=== PATIENT | female | born 1980 | race Caucasian/White ===

== ENCOUNTER → 2018-08-06 12:08 | Outpatient (CLI) | payer OTHER, SELFPAY ==
[2018-08-06 15:29] LABS: TSH w/ Reflex to FT4 2.83 uIU/mL (0.47-4.68)
== END ==
PROVIDERS: PCP Family Medicine; Visit Provider Family Medicine
DX: Z83.49 Family history of other endocrine, nutritional and metabolic diseases (principal)
CPT/HCPCS: 36415; 84443

== ENCOUNTER → 2020-04-12 14:28 | Outpatient (CLI) | payer OTHER, SELFPAY ==
[2020-04-12 18:12] LABS: Vitamin B12 326 pg/mL (239-931)
== END ==
PROVIDERS: PCP Family Medicine; Referring Provider Family Medicine; Visit Provider Family Medicine
DX: G62.9 Polyneuropathy, unspecified (principal)
CPT/HCPCS: 36415; 82607; 83036

== ENCOUNTER → 2020-09-17 13:15 | Outpatient (CLI) | payer OTHER, SELFPAY ==
[2020-09-17] MEDS: COVID-19 VACC, Ad26(JANSSEN)/PF 0.5 ML IM (13:21)
== END ==
PROVIDERS: PCP Family Medicine; Visit Provider Internal Medicine
DX: Z23 Encounter for immunization (principal)
CPT/HCPCS: 0031A; 91303

== ENCOUNTER → 2021-11-18 10:08 | Outpatient (CLI) | payer OTHER, SELFPAY ==
[2021-11-18 11:24] LABS: Hemoglobin A1C% w Est Avg Glu 6.1 % (4.0-6.0)
== END ==
PROVIDERS: PCP Family Medicine; Referring Provider Family Medicine; Visit Provider Family Medicine
DX: R73.03 Prediabetes (principal)
CPT/HCPCS: 36415; 83036

== ENCOUNTER → 2022-11-09 10:17 | Outpatient (CLI) | payer OTHER, SELFPAY ==
[2022-11-10 04:30] LABS: x Labcorp Estim. Avg Glu (eAG) 126 mg/dL (.)
== END ==
PROVIDERS: PCP Family Medicine; Referring Provider Family Medicine; Visit Provider Family Medicine
DX: R73.03 Prediabetes (principal)
CPT/HCPCS: 36415; 83036

== ENCOUNTER → 2023-03-05 09:49 | Outpatient (CLI) | payer OTHER, SELFPAY ==
--- NOTE | 2023-03-05 09:53 | DI.RAD.S_ITS ---
PROCEDURE: XR FOOT LT MIN 3V INDICATIONS: Left foot injury between 3rd and 4th toe TECHNIQUE: 3 views of the foot were acquired. COMPARISON: [facility], , FOOT 3V LEFT, 04/24/2017, 11:48. FINDINGS: Bones: Mild degenerative changes at the 1st MTP. No displaced fracture or dislocations is seen. Plantar calcaneal enthesopathy. Soft tissues: No suspicious calcifications. IMPRESSION: No acute radiographic abnormality. If there is high concern for occult injury, consider repeat radiography or cross-sectional imaging. Dictated by: Brando Nice M.D. on 03/05/2023 at 14:42 Approved by: Brando Nice M.D. on 03/05/2023 at 14:43
== END ==
PROVIDERS: PCP Family Medicine; Referring Provider Nurse Practitioner Family; Visit Provider Nurse Practitioner Family
DX: S99.922A Unspecified injury of left foot, initial encounter (principal); X58.XXXA Exposure to other specified factors, initial encounter
CPT/HCPCS: 73630

== ENCOUNTER → 2023-11-19 14:21 | Outpatient (CLI) | payer OTHER, SELFPAY ==
--- NOTE | 2023-11-19 14:22 | DI.MG.S_ITS ---
BILATERAL DIGITAL SCREENING MAMMOGRAM 3D/2D WITH CAD: 11/19/2023 CLINICAL: Baseline exam. Routine screening. Family history of breast Cancer. No prior exams were available for comparison. Both breasts are heterogeneously dense, which may obscure small masses (category c / 51-75% glandular tissue). Current study was also evaluated with a Computer Aided Detection (CAD) system. There is a focal asymmetry in the left breast at 2 o'clock middle depth. No other significant masses, calcifications, or other findings are seen in either breast. IMPRESSION: INCOMPLETE: NEEDS ADDITIONAL IMAGING EVALUATION The focal asymmetry in the left breast is indeterminate. A diagnostic mammogram and ultrasound is recommended. Based on the Tyrer Cuzick model (a risk assessment model) the patient's lifetime risk is 16.6% and her 10 year risk is 2.9%. According to the ACR, ACS, and NCCN guidelines, an annual breast MRI exam along with mammogram is recommended if the patient's lifetime risk is 20% or greater. This exam was interpreted at Station ID: [id number]. NOTE: For mammograms, a report in lay terms will be sent to the patient. Approximately 15% of breast malignancies will not be visualized mammographically. In the management of a palpable breast mass, a negative mammogram must not discourage biopsy of a clinically suspicious lesion. Electronically Signed By: Rosey Jarvis M.D., Ph.D. eb/:11/19/2023 16:24:56 letter sent: Additional Imaging Needed ACR BI-RADS Category 0: Incomplete 3340F
== END ==
PROVIDERS: Family Provider Family Medicine; PCP Family Medicine; Referring Provider Family Medicine; Visit Provider Family Medicine
DX: Z12.31 Encounter for screening mammogram for malignant neoplasm of breast (principal); Z80.3 Family history of malignant neoplasm of breast; R92.333 Mammographic heterogeneous density, bilateral breasts
CPT/HCPCS: 77063; 77067

== ENCOUNTER → 2023-12-11 08:52 | Outpatient (CLI) | payer OTHER, SELFPAY ==
--- NOTE | 2023-12-11 08:53 | DI.MG.S_ITS ---
UNILATERAL LEFT DIGITAL DIAGNOSTIC MAMMOGRAM 3D/2D WITH ADDITIONAL VIEWS: 12/11/2023 CLINICAL: Additional evaluation requested from prior study. Comparison is made to exam dated: 11/19/2023 mammogram - [facility]. The left breast is heterogeneously dense, which may obscure small masses (category c / 51-75% glandular tissue). There is a 0.9 cm oval mass with a circumscribed margin and associated dystrophic calcifications in the left breast at 2 o'clock posterior depth. This corresponds to finding seen on recent baseline screening mammogram. No other significant masses or calcifications are seen in the breast. IMPRESSION: INCOMPLETE: NEEDS ADDITIONAL IMAGING EVALUATION Left breast 0.9 cm oval mass with associated dystrophic calcifications at 2 o'clock, posterior depth, initially seen on baseline screening mammogram. An ultrasound is recommended for further evaluation and is scheduled to immediately follow this examination. Based on the Tyrer Cuzick model (a risk assessment model) the patient's lifetime risk is 17.5% and her 10 year risk is 3.1%. According to the ACR, ACS, and NCCN guidelines, an annual breast MRI exam along with mammogram is recommended if the patient's lifetime risk is 20% or greater. This exam was interpreted at Station ID: [id number]. NOTE: For mammograms, a report in lay terms will be sent to the patient. Approximately 15% of breast malignancies will not be visualized mammographically. In the management of a palpable breast mass, a negative mammogram must not discourage biopsy of a clinically suspicious lesion. Electronically Signed By: Rosey Jarvis M.D., Ph.D. eb/:12/11/2023 13:04:31 ACR BI-RADS Category 0: Incomplete 3340F
--- NOTE | 2023-12-11 08:53 | DI.US.S_ITS ---
LIMITED ULTRASOUND OF LEFT BREAST: 12/11/2023 CLINICAL: Patient returns today to evaluate a focal asymmetry in the left breast. Comparison is made to exams dated: 12/11/2023 mammogram and 11/19/2023 mammogram - [facility]. Real-time ultrasound of the left breast 2 o'clock region was performed. Sorensen scale images of the real-time examination were reviewed. There is a 0.9 cm x 0.5 cm x 0.7 cm oval mass with a circumscribed margin in the left breast at 2 o'clock, 8 cm from the nipple. This oval mass is hypoechoic. This correlates with mammography findings. Color flow imaging demonstrates that there is no vascularity present. IMPRESSION: PROBABLY BENIGN Left breast 0.9 cm oval mass at 2 o'clock. 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 Recommend follow-up mammogram and an ultrasound in 6 months to demonstrate stability. Findings and recommendations were conveyed to the patient during today's evaluation. This exam was interpreted at Station ID: [id number]. Electronically Signed By: Rosey Jarvis M.D., Ph.D. eb/:12/11/2023 13:07:02 letter sent: Followup Recommended Ultrasound BI-RADS: 3 Probably benign
== END ==
PROVIDERS: Family Provider Family Medicine; PCP Family Medicine; Referring Provider Family Medicine; Visit Provider Family Medicine
DX: R92.8 Other abnormal and inconclusive findings on diagnostic imaging of breast (principal); R92.1 Mammographic calcification found on diagnostic imaging of breast; N63.21 Unspecified lump in the left breast, upper outer quadrant; R92.332 Mammographic heterogeneous density, left breast
CPT/HCPCS: 76642; 77065; G0279

== ENCOUNTER → 2024-01-10 11:16 | Outpatient (CLI) | payer BC, OTHER, SELFPAY ==
--- NOTE | 2024-01-10 11:17 | DI.RAD.S_ITS ---
PROCEDURE: XR FINGER RT 3V INDICATIONS: Right middle finger injury TECHNIQUE: AP hand, 3 views of the finger(s) acquired. COMPARISON: None. FINDINGS: Bones: No fracture or dislocation. No suspicious bony lesions. Soft tissues: No soft tissue calcifications. IMPRESSION: No radiographic evidence of acute bony abnormality. If symptoms persist or worsen, MRI could be performed Dictated by: Barrie Casarez M.D. on 01/10/2024 at 14:14 Approved by: Barrie Casarez M.D. on 01/10/2024 at 14:41
== END ==
PROVIDERS: Family Provider Family Medicine; PCP Family Medicine; Referring Provider Nurse Practitioner Family; Visit Provider Nurse Practitioner Family
DX: S69.90XA Unspecified injury of unspecified wrist, hand and finger(s), initial encounter (principal); S69.91XA Unspecified injury of right wrist, hand and finger(s), initial encounter; X58.XXXA Exposure to other specified factors, initial encounter
CPT/HCPCS: 73140

== ENCOUNTER 2024-03-04 10:45 | Outpatient (RCR) | payer BC, OTHER, SELFPAY ==
--- NOTE | 2023-12-13 15:58 | PT.OIE ---
Current Diagnoses Pain in left elbow (12/13/23) Pain in right ankle and joints of right foot (12/13/23) Stiffness of left elbow, not elsewhere classified (12/13/23) Stiffness of right ankle, not elsewhere classified (12/13/23) Other lack of coordination (12/13/23) Weakness (12/13/23) Past Medical History (Last Updated 04/13/20 @ 13:39 by Eileen Mcmahan MD) Hx gestational diabetes Prediabetes Past Surgical History Status post arthroscopy Status post delivery Status post delivery Status post delivery Status post colposcopy Visit Care Team Role Provider Type Eileen Mcmahan MD Attending Provider Physician Family Provider Primary Care Provider Referring Provider Specialty: [facility] Address: [address] [place] [address], [facility] Email: [email or web address] Physical Therapy Initial Evaluation PT-OP-A Visit Information Start: 12/13/23 09:03 Freq: Status: Active Protocol: Document 12/13/23 09:03 NM (Rec: 12/13/23 09:47 NM [id number]) Out-Patient Physical Therapy Visit Information Visit Information Visit Type Initial Evaluation Visit Note Fin Visit Start Time 09:04 Visit Stop Time 09:45 Visit Number 05/24 Evaluation Information Evaluation Date 12/13/23 PT-OP-B Current Condition Start: 12/13/23 09:03 Freq: Status: Active Protocol: Document 12/13/23 09:03 NM (Rec: 12/13/23 09:47 NM [id number]) Current Condition History of Current Condition Current Complaints pain, decreased mobility and stability History of Current Condition Pt presents with R ankle pain. It is chronic condition, 10 years ago from injury. Pt was chasing after her son in a jump house, jumping over the wedge, hit the outside of her ankle and landed. She was assessed for a sprain and fracture, was casted and booted; she had 2 cycles of PRP and an arthroscopy to remove scar tissue. She reports that is was manageable ; however, now she feels like a tendon is catching in the ankle when she moves. She occasionally gets a sharp pain that makes her leg give out. She has been wearing supportive hiking boots; worse with: driving (pressing pedal ), taekwondo w/ twisting or lateral movements, uneven ground ambulation, unable to run, car transfer. No recent imaging. Ok to stand or walk unless prolonged due to repetitive movement; no limitation due to distance/ time. She has been doing taekwondo for a year (dec 2022), states that catching started in the spring 2022. Has tried ankle compression sleeve which helps but does not stop the problem. Pt also presents with L elbow pain for 8 months. She reports that she though it was achy. She states was progressively getting worse. About 1 month ago, she states that it was the worse that it ever was. 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 She also has occasional shoulder pain. States no known JOSE ALFREDO. She states that on an evening, she has rest it on a pillow. 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 ; on computer a lot, prn travel (standing) PT-OP-C Subjective Start: 12/13/23 09:03 Freq: Status: Active Protocol: Document 12/13/23 09:03 NM (Rec: 12/13/23 09:47 NM [id number]) OP-PT Subjective Patient Comments Patient Comments pt consents to participate in PT evaluation Patient Questionnaires Foot & Ankle Ability Measure- ADL and Sports FAAM-ADL Score 57/84 FAAM-Sport Score 13/32 Lower Extremity Functional Scale LEFS Score 50/80 Quick Dash- Upper Extremity Quick Dash UE Score 31.8% OP-PT Pain Assessment Location L elbow Pain Location Details lateral elbow Intensity 3 Scale Used Numeric (0 - 10) Description Aching,Burning,Dull Description- Other burn to lateral elbow, sharp pain to lateral elbow; worst 8 /10 Radiating Location prn tingling to pinky and shoulder at worst (not present right now) Pain Aggravating Factors Lifting Other Pain Aggravating Factors gripping, twisting, driving Other Pain Alleviating Factors compression sleeve (elbow) R ankle Pain Location Details anterolateral joint Intensity 3 Scale Used Numeric (0 - 10) Description Aching,Dull,Sharp Description- Other w/ aggravation -12/07 Pain Duration a few minutes to hours ( driving) Radiating Location w/ aggravation: to toes and hip Pain Aggravating Factors ADL's,Activity,Exercise, Standing,Walking Pain Alleviating Factors Cold,Elevation,Rest PT-OP-D Balance Start: 12/13/23 09:03 Freq: Status: Active Protocol: Document 12/13/23 09:03 NM (Rec: 12/13/23 09:47 NM [id number]) Balance Tests Single Limb Standing Single Limb- Right 10 seconds, painful Single Limb- Left 30 seconds PT-OP-E Functional Tests Start: 12/13/23 09:03 Freq: Status: Active Protocol: Document 12/13/23 09:03 NM (Rec: 12/13/23 09:47 NM [id number]) Functional Tests Other DF test Name of Test measured from 4 finger position (toe) to wall, heel down on ground Score R 3.5 cm, L 0 cm PT-OP-F Manual Assessment Start: 12/13/23 09:03 Freq: Status: Active Protocol: Document 12/13/23 09:03 NM (Rec: 12/13/23 09:47 NM [id number]) Manual Assessments Soft Tissue Assessment Soft Tissue Mobility Assessment elbow- decreased length of biceps muscle, increased tone in extensor wad ankle- increased swelling at R ankle along lateral side, decreased length of achilles Joint Mobility Assessment Joint Mobility Assessment elbow- increased muscle guarding, no increased instability compared to R elbow, unable to fully extend elbow ankle- increased movement in sagittal plane with anterior drawer along with increased pain, no increased pain with other medial or lateral ligamentous testing or forceful ankle dorsiflexion PT-OP-G Mobility & Gait Start: 12/13/23 09:03 Freq: Status: Active Protocol: Document 12/13/23 09:03 NM (Rec: 12/13/23 10:04 NM [id number]) OP Gait Assessment Gait Distance (Feet) 150 Comments Gait Comments Antalgic gait with R stance, demos decreased stance time and dorsiflexion on RLE. Less propulsion on RLE and slight ER PT-OP-J Posture/Palpation/Skin Start: 12/13/23 09:03 Freq: Status: Active Protocol: Document 12/13/23 09:03 NM (Rec: 12/13/23 10:04 NM [id number]) Posture Evaluation Position Standing Head/C-Spine Posture Forward Head Arm Posture (L) Neutral,(R) Neutral Pelvis Posture Anteriorly Tilted Weight Distribution Weight Shifted Left Hip Posture (L) Externally Rotated,(R) Externally Rotated Knee Posture (L) Genu Valgus,(R) Genu Valgus Ankle/Foot Posture (L) Supinated,(R) Supinated Foot Arch (L) Medium Arch,(R) Medium Arch Comments Posture Comments Increased carrying elbow angle bilaterally, hyperextension of R knee in stance Palpation Assessment Location L elbow Palpation Details Tenderness along B joint line lateral > medial, lateral extenor wad and lateral epidcondyle no tenderness along olecranon or biceps/triceps near insertion R ankle Palpation Details Tenderness along anterior ankle near sinus tarsi, ankle mortise, and lateral malleolus Increased swelling along ankle across B malleoli No tenderness along rays or tarsals, calcaneus, malleoli PT-OP-K Range of Motion Start: 12/13/23 09:03 Freq: Status: Active Protocol: Document 12/13/23 09:03 NM (Rec: 12/13/23 09:47 NM [id number]) Cervical Spine Range of Motion Cervical Spine Active Degrees Rotation Left 70 Rotation Right 80 Comments full flex/ext, LF; no pain Shoulder Goniometric Range of Motion Shoulder Right Flexion 170 Abduction 140 External Rotation at 90 degrees 80 Abduction Internal Rotation Behind Back (text) T7 Left Flexion 166 Abduction 165 External Rotation at 90 degrees 80 Abduction Internal Rotation Behind Back (text) T9 Elbow/Forearm Range of Motion Elbow/Forearm Right Elbow Flexion (degrees) 144 Elbow Extension (degrees) 0 Pronation (degrees) 90 Supination (degrees) 80 Left Elbow Flexion (degrees) 140 Elbow Extension (degrees) 10 Pronation (degrees) 90 Supination (degrees) 90 Comments pain with pronation, sup w/ flex Ankle and Foot Goniometric Range of Motion Ankle and Foot Right Plantarflexion 45 Inversion 10 Eversion 10 Comments minimal ROM into inversion, eversion but denies pain; lacking 10 deg DF from neutral Left Dorsiflexion with Knee Flexed 6 Plantarflexion 50 Inversion 30 Eversion 20 PT-OP-L Special Tests Start: 12/13/23 09:03 Freq: Status: Active Protocol: Document 12/13/23 09:03 NM (Rec: 12/13/23 10:04 NM [id number]) Special Tests Cervical Spine Special Tests Traction Comments assess next session Spurling's Test Test Results - Elbow Special Tests Lateral epicondylitis tests Comments + palpation + 3rd finger ext + lateral epicondylitis test flex > ext Hook test Test Results able to palpate and hook distal biceps tendon Yergason's Biceps Test Results - Varus Test Results - Comments increased guarding Valgus Test Results - Comments increased guarding Foot/Ankle Special Tests Peroneal Subluxation Test Results - Srinivasan Test Results - Talar tilt Test Results - Anterior drawer Test Results + Neural Special Tests- Upper Body Elbow Flexion Test Test Results - Tinel Sign Test Results - Comments ulnar n PT-OP-M Strength Start: 12/13/23 09:03 Freq: Status: Active Protocol: Document 12/13/23 09:03 NM (Rec: 12/13/23 09:47 NM [id number]) Shoulder Strength Shoulder Manual Muscle Testing Right Flexion 4+ Good+ Abduction (C5) 4+ Good+ External Rotation 4+ Good+ Internal Rotation 4+ Good+ Left Flexion 4+ Good+ Abduction (C5) 4+ Good+ External Rotation 4+ Good+ Internal Rotation 4+ Good+ Elbow/Forearm Strength Elbow and Forearm Manual Muscle Testing Right Flexion (C6) 4+ Good+ Extension (C7) 4+ Good+ Pronation 4+ Good+ Supination 4+ Good+ Left Flexion (C6) 4 Good Extension (C7) 4 Good Pronation 4- Good- Supination 4- Good- Comments no pain with resisted motion Hip Strength Hip Manual Muscle Testing Right Flexion (L2) 4 Good Extension (S1) 4 Good Abduction 4- Good- Adduction 4 Good Left Flexion (L2) 4 Good Extension (S1) 4 Good Abduction 4 Good Adduction 4 Good Knee Strength Knee Manual Muscle Testing Right Flexion (S2) 4 Good Extension (L3) 4- Good- Left Flexion (S2) 4+ Good+ Extension (L3) 4+ Good+ Ankle/Foot Strength Ankle and Foot Manual Muscle Testing Right Dorsiflexion (L4) 4- Good- Plantarflexion (S1) 3 Fair Inversion 4- Good- Eversion (S1) 4- Good- Comments 2 single leg heel raise Left Dorsiflexion (L4) 4+ Good+ Plantarflexion (S1) 4 Good Inversion 4+ Good+ Eversion (S1) 4+ Good+ Comments 18 single leg heel raise PT-OP-Q Treatments Start: 12/13/23 09:03 Freq: Status: Active Protocol: Document 12/13/23 09:03 NM (Rec: 12/13/23 10:04 NM [id number]) Self-Care/Home Management Treatment Education Patient Education Joint Protection,Pain Management Other Education Education on potential use of lateral epicondylitis strap brace at elbow during driving Education on trialing ankle brace during tae tuan do to promote stability PT-OP-T Assessment and Plan Start: 12/13/23 09:03 Freq: Status: Active Protocol: Document 12/13/23 09:03 NM (Rec: 12/13/23 09:47 NM [id number]) Physical Therapy Assessment Rehab Potential Rehabilitation Potential Good Evaluation Complexity Clinical Presentation at Evaluation Stable Impairments Impairments Activity Tolerance,Balance, Edema,Functional Activities, Functional Mobility,Gait, Integument,Pain,Posture,ROM, Sensation,Soft Tissue Mobility ,Strength,Transfers Other Concerns Barriers to Rehabilitation Pt has limited number of insurance visits and has multiple joints affected with chronic conditions. 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 for driving and ability to lift STG Duration 10 weeks Chief Medical Technologist Goal (LTG) Pt will report no increase in baseline pain in L elbow or limitations during driving in order to demonstrate improved symptom management and QOL LTG Duration 12 weeks Four Impairment L elbow extension limited by 10 deg Short Term Goal (STG) If appropriate, Pt will improve L elbow extension by at least 5 deg in order to be able to extend arm fully for gripping, lifting, and driving STG Duration 8 weeks Chief Medical Technologist Goal (LTG) If appropriate, Pt will improve L elbow extension to at least 2 deg in order to be able to extend arm fully for gripping, lifting, and driving LTG Duration 12 weeks Three Impairment strength Short Term Goal (STG) Pt will increase R global ankle strength to at least 4/5 MMT in order to demonstrate improved strength for gait, tae tuan do, and endurance while driving STG Duration 6 weeks Chief Medical Technologist Goal (LTG) Pt will improve R ankle single leg heel raises to within 3 of LLE, in addition to 4+/5 R ankle strength globally in order to demonstrate improved strength for gait, tae tuan do and endurance while driving LTG Duration 8 weeks Two Impairment ankle AROM limitations in eversion and inversion 10 deg ea Short Term Goal (STG) Pt will increase R ankle inversion AROM to at least 20 deg and R ankle eversion ROM to at least 12 deg in order to demonstrate improved mobility for stability during stance and gait STG Duration 8 weeks Chief Medical Technologist Goal (LTG) Pt will increase R ankle inversion AROM to at least 30 deg and R ankle eversion ROM to at least 15 deg in order to demonstrate improved mobility for stability during stance and gait LTG Duration 12 weeks One Impairment ankle ROM DF limitations lacking 10 deg from neutral Short Term Goal (STG) Pt will improve R ankle dorsiflexion AROM to at least neutral in order to improve gait mechanics and mobility for driving STG Duration 8 weeks Custodial Goal (LTG) Pt will improve R ankle dorsiflexion AROM to at least 5 deg above neutral in order to improve gait mechanics and mobility for driving LTG Duration 12 weeks Assessment Summary Assessment Pt isia 43 y.o. female presenting with chronic R ankle pain and chronic L elbow pain. She has impairments in elbow and ankle ROM, strength, pain management, gait, driving, ADLs, lifting, ambulation, gripping, and activity tolerance. Pt's R ankle dorsiflexion AROM is most limited but she does have restrictions globally; she also has increased mobility with ligament testing of ATFL. Her symptoms are reproduced with stabilization testing, single leg stance, gait, AROM, and strength testing. Pt's L elbow symptoms are consistent with lateral epicondylitis, reproduced with gripping, repetitive movements. She has limitations in L elbow extension AROM, in addition to mild limitations in strength. Pt has increased restrictions of her biceps muscle length. She also has pain with varus/ valgus testing but no increased mobility. PT educated pt on exam findings and plan of care. Pt is requesting to focus on her R ankle due to recent improvement in L elbow. Pt also has limited number of insurance visits. She would benefit from skilled PT for flexibility, stabilization, strength training, in addition to activity modification and proprioceptive training in order to improve symptom management and QOL. Physical Therapy Plan Frequency and Duration Frequency of Treatment 1x/Week Duration of treatment (weeks) 12 Plan of Care Start Date 12/13/23 Plan of Care End Date 03/07/24 Therapeutic Interventions Therapeutic Interventions Balance Training,Gait Training ,Home Exercise Program,Joint Mobilizations,Manual Therapy, Neuromuscular Re-education, Orthotic/Prosthetic Management ,Patient/Caregiver Education, Self-Care/Home Management, Sensory Integration,Soft Tissue Mobilization,Taping, Therapeutic Activities, Therapeutic Exercises Modalities Cold Pack/Ice Massage,Electric Stimulation,Hot Packs, Ultrasound Next Visit Focus/Plan Next Note Type Treatment Note Next Visit Plan Ankle mobilizations, calf stretch, ankle circles/abc, ankle banded 4 way, DF mobilization
--- NOTE | 2023-12-25 12:11 | PT.OTN ---
Current Diagnoses Pain in left elbow (12/25/23) Pain in right ankle and joints of right foot (12/25/23) Stiffness of left elbow, not elsewhere classified (12/25/23) Stiffness of right ankle, not elsewhere classified (12/25/23) Other lack of coordination (12/25/23) Weakness (12/25/23) Physical Therapy Treatment Note PT-OP-A Visit Information Start: 12/13/23 09:03 Freq: Status: Active Protocol: Document 12/25/23 11:17 NM (Rec: 12/25/23 12:11 NM [id number]) Out-Patient Physical Therapy Visit Information Visit Information Visit Type Treatment Note Visit Note Fin Visit Start Time 11:18 Visit Stop Time 12:58 Visit Number 06/24 Evaluation Information Evaluation Date 12/13/23 PT-OP-B Current Condition Start: 12/13/23 09:03 Freq: Status: Active Protocol: Document 12/13/23 09:03 NM (Rec: 12/13/23 09:47 NM [id number]) Current Condition History of Current Condition Current Complaints pain, decreased mobility and stability History of Current Condition Pt presents with R ankle pain. It is chronic condition, 10 years ago from injury. Pt was chasing after her son in a jump house, jumping over the wedge, hit the outside of her ankle and landed. She was assessed for a sprain and fracture, was casted and booted; she had 2 cycles of PRP and an arthroscopy to remove scar tissue. She reports that is was manageable ; however, now she feels like a tendon is catching in the ankle when she moves. She occasionally gets a sharp pain that makes her leg give out. She has been wearing supportive hiking boots; worse with: driving (pressing pedal ), taekwondo w/ twisting or lateral movements, uneven ground ambulation, unable to run, car transfer. No recent imaging. Ok to stand or walk unless prolonged due to repetitive movement; no limitation due to distance/ time. She has been doing taekwondo for a year (dec 2022), states that catching started in the spring 2022. Has tried ankle compression sleeve which helps but does not stop the problem. Pt also presents with L elbow pain for 8 months. She reports that she though it was achy. She states was progressively getting worse. About 1 month ago, she states that it was the worse that it ever was. 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 She also has occasional shoulder pain. States no known JOSE ALFREDO. She states that on an evening, she has rest it on a pillow. 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 States that she went hiking after evaluation and has had achilles soreness bilaterally for 2 weeks. States that when touching near anterior ankle has increased tingling at dorsal foot (not present otherwise) PT-OP-D Balance Start: 12/13/23 09:03 Freq: Status: Active Protocol: Document 12/13/23 09:03 NM (Rec: 12/13/23 09:47 NM [id number]) Balance Tests Single Limb Standing Single Limb- Right 10 seconds, painful Single Limb- Left 30 seconds PT-OP-E Functional Tests Start: 12/13/23 09:03 Freq: Status: Active Protocol: Document 12/13/23 09:03 NM (Rec: 12/13/23 09:47 NM [id number]) Functional Tests Other DF test Name of Test measured from 4 finger position (toe) to wall, heel down on ground Score R 3.5 cm, L 0 cm PT-OP-F Manual Assessment Start: 12/13/23 09:03 Freq: Status: Active Protocol: Document 12/13/23 09:03 NM (Rec: 12/13/23 09:47 NM [id number]) Manual Assessments Soft Tissue Assessment Soft Tissue Mobility Assessment elbow- decreased length of biceps muscle, increased tone in extensor wad ankle- increased swelling at R ankle along lateral side, decreased length of achilles Joint Mobility Assessment Joint Mobility Assessment elbow- increased muscle guarding, no increased instability compared to R elbow, unable to fully extend elbow ankle- increased movement in sagittal plane with anterior drawer along with increased pain, no increased pain with other medial or lateral ligamentous testing or forceful ankle dorsiflexion PT-OP-G Mobility & Gait Start: 12/13/23 09:03 Freq: Status: Active Protocol: Document 12/13/23 09:03 NM (Rec: 12/13/23 10:04 NM [id number]) OP Gait Assessment Gait Distance (Feet) 150 Comments Gait Comments Antalgic gait with R stance, demos decreased stance time and dorsiflexion on RLE. Less propulsion on RLE and slight ER PT-OP-J Posture/Palpation/Skin Start: 12/13/23 09:03 Freq: Status: Active Protocol: Document 12/13/23 09:03 NM (Rec: 12/13/23 10:04 NM [id number]) Posture Evaluation Position Standing Head/C-Spine Posture Forward Head Arm Posture (L) Neutral,(R) Neutral Pelvis Posture Anteriorly Tilted Weight Distribution Weight Shifted Left Hip Posture (L) Externally Rotated,(R) Externally Rotated Knee Posture (L) Genu Valgus,(R) Genu Valgus Ankle/Foot Posture (L) Supinated,(R) Supinated Foot Arch (L) Medium Arch,(R) Medium Arch Comments Posture Comments Increased carrying elbow angle bilaterally, hyperextension of R knee in stance Palpation Assessment Location L elbow Palpation Details Tenderness along B joint line lateral > medial, lateral extenor wad and lateral epidcondyle no tenderness along olecranon or biceps/triceps near insertion R ankle Palpation Details Tenderness along anterior ankle near sinus tarsi, ankle mortise, and lateral malleolus Increased swelling along ankle across B malleoli No tenderness along rays or tarsals, calcaneus, malleoli PT-OP-K Range of Motion Start: 12/13/23 09:03 Freq: Status: Active Protocol: Document 12/13/23 09:03 NM (Rec: 12/13/23 09:47 NM [id number]) Cervical Spine Range of Motion Cervical Spine Active Degrees Rotation Left 70 Rotation Right 80 Comments full flex/ext, LF; no pain Shoulder Goniometric Range of Motion Shoulder Right Flexion 170 Abduction 140 External Rotation at 90 degrees 80 Abduction Internal Rotation Behind Back (text) T7 Left Flexion 166 Abduction 165 External Rotation at 90 degrees 80 Abduction Internal Rotation Behind Back (text) T9 Elbow/Forearm Range of Motion Elbow/Forearm Right Elbow Flexion (degrees) 144 Elbow Extension (degrees) 0 Pronation (degrees) 90 Supination (degrees) 80 Left Elbow Flexion (degrees) 140 Elbow Extension (degrees) 10 Pronation (degrees) 90 Supination (degrees) 90 Comments pain with pronation, sup w/ flex Ankle and Foot Goniometric Range of Motion Ankle and Foot Right Plantarflexion 45 Inversion 10 Eversion 10 Comments minimal ROM into inversion, eversion but denies pain; lacking 10 deg DF from neutral Left Dorsiflexion with Knee Flexed 6 Plantarflexion 50 Inversion 30 Eversion 20 PT-OP-L Special Tests Start: 12/13/23 09:03 Freq: Status: Active Protocol: Document 12/13/23 09:03 NM (Rec: 12/13/23 10:04 NM [id number]) Special Tests Cervical Spine Special Tests Traction Comments assess next session Spurling's Test Test Results - Elbow Special Tests Lateral epicondylitis tests Comments + palpation + 3rd finger ext + lateral epicondylitis test flex > ext Hook test Test Results able to palpate and hook distal biceps tendon Ashley's Biceps Test Results - Varus Test Results - Comments increased guarding Valgus Test Results - Comments increased guarding Foot/Ankle Special Tests Peroneal Subluxation Test Results - Srinivasan Test Results - Talar tilt Test Results - Anterior drawer Test Results + Neural Special Tests- Upper Body Elbow Flexion Test Test Results - Tinel Sign Test Results - Comments ulnar n PT-OP-M Strength Start: 12/13/23 09:03 Freq: Status: Active Protocol: Document 12/13/23 09:03 NM (Rec: 12/13/23 09:47 NM [id number]) Shoulder Strength Shoulder Manual Muscle Testing Right Flexion 4+ Good+ Abduction (C5) 4+ Good+ External Rotation 4+ Good+ Internal Rotation 4+ Good+ Left Flexion 4+ Good+ Abduction (C5) 4+ Good+ External Rotation 4+ Good+ Internal Rotation 4+ Good+ Elbow/Forearm Strength Elbow and Forearm Manual Muscle Testing Right Flexion (C6) 4+ Good+ Extension (C7) 4+ Good+ Pronation 4+ Good+ Supination 4+ Good+ Left Flexion (C6) 4 Good Extension (C7) 4 Good Pronation 4- Good- Supination 4- Good- Comments no pain with resisted motion Hip Strength Hip Manual Muscle Testing Right Flexion (L2) 4 Good Extension (S1) 4 Good Abduction 4- Good- Adduction 4 Good Left Flexion (L2) 4 Good Extension (S1) 4 Good Abduction 4 Good Adduction 4 Good Knee Strength Knee Manual Muscle Testing Right Flexion (S2) 4 Good Extension (L3) 4- Good- Left Flexion (S2) 4+ Good+ Extension (L3) 4+ Good+ Ankle/Foot Strength Ankle and Foot Manual Muscle Testing Right Dorsiflexion (L4) 4- Good- Plantarflexion (S1) 3 Fair Inversion 4- Good- Eversion (S1) 4- Good- Comments 2 single leg heel raise Left Dorsiflexion (L4) 4+ Good+ Plantarflexion (S1) 4 Good Inversion 4+ Good+ Eversion (S1) 4+ Good+ Comments 18 single leg heel raise PT-OP-Q Treatments Start: 12/13/23 09:03 Freq: Status: Active Protocol: Document 12/25/23 11:17 NM (Rec: 12/25/23 12:11 NM [id number]) Therapeutic Exercises Supine Exercises ankle pumps Supine Exercise Name 1. AROM, 2. MWM using racquetball Side right Reps/Minutes 10 ea Sitting Exercises ankle [address] way Sitting Exercise Name HEP: ankle DF, inversion, eversion, PF Side right Resistance level 2 band Reps/Minutes 2x10 ea Comments no clicking w/ eversion when controlled ankle ABCs Side right Reps/Minutes 1 set Comments clicking w/ eversion Standing Exercises resisted stepping Standing Exercise Name 1. side steps, 2. forward/ retro monster walk Side bilateral Resistance level 2 band at thighs Reps/Minutes 2x15 ft ea Comments squat position; cued neutral ankle position; pain free calf stretch Standing Exercise Name HEP: 1. gastrocnemius, 2. soleus Side bilateral Equipment Used staggered stance at wall Reps/Minutes 60 ea Manual Therapy Treatment Consent Patient gave verbal consent for manual Yes treatment Soft Tissue Mobilization R ankle Body Location calf, evertors, invertors, dorsiflexors, Achilles, sinus tarsi Mobilization Type Rolling,Strumming Intensity/Depth Moderate Body Position Hooklying Comments Tenderness and trigger points of R calf. Pt has tingling sensation that occurs with gentle palpation over sinus tarsi Joint Mobilizations R ankle Joint talocrural joint, subtalar joint, 1st toe Direction PA, AP, medial-lateral, dorsal /volar Grade II Reps/Duration 2x30 ea Comments Supine and prone position. Hand positioned with B hand support using dorsiflexion mobilization with scooping motion. Monitored for pain PT-OP-T Assessment and Plan Start: 12/13/23 09:03 Freq: Status: Active Protocol: Document 12/25/23 11:17 NM (Rec: 12/25/23 12:11 NM [id number]) Physical Therapy Assessment Goals Five Impairment L elbow strength Short Term Goal (STG) If appropriate, Pt will improve L elbow global strength to at least 4+/5 without increase in baseline pain in order to demonstrate improvements in director clinical data strength for driving and ability to lift STG Duration 10 weeks Snf Goal (LTG) Pt will report no increase in baseline pain in L elbow or limitations during driving in order to demonstrate improved symptom management and QOL LTG Duration 12 weeks Four Impairment L elbow extension limited by 10 deg Short Term Goal (STG) If appropriate, Pt will improve L elbow extension by at least 5 deg in order to be able to extend arm fully for gripping, lifting, and driving STG Duration 8 weeks Computational Physicist Goal (LTG) If appropriate, Pt will improve L elbow extension to at least 2 deg in order to be able to extend arm fully for gripping, lifting, and driving LTG Duration 12 weeks Three Impairment strength Short Term Goal (STG) Pt will increase R global ankle strength to at least 4/5 MMT in order to demonstrate improved strength for gait, tae tuan do, and endurance while driving STG Duration 6 weeks Computational Physicist Goal (LTG) Pt will improve R ankle single leg heel raises to within 3 of LLE, in addition to 4+/5 R ankle strength globally in order to demonstrate improved strength for gait, tae tuan do and endurance while driving LTG Duration 8 weeks Two Impairment ankle AROM limitations in eversion and inversion 10 deg ea Short Term Goal (STG) Pt will increase R ankle inversion AROM to at least 20 deg and R ankle eversion ROM to at least 12 deg in order to demonstrate improved mobility for stability during stance and gait STG Duration 8 weeks Snf Goal (LTG) Pt will increase R ankle inversion AROM to at least 30 deg and R ankle eversion ROM to at least 15 deg in order to demonstrate improved mobility for stability during stance and gait LTG Duration 12 weeks One Impairment ankle ROM DF limitations lacking 10 deg from neutral Short Term Goal (STG) Pt will improve R ankle dorsiflexion AROM to at least neutral in order to improve gait mechanics and mobility for driving STG Duration 8 weeks Snf Goal (LTG) Pt will improve R ankle dorsiflexion AROM to at least 5 deg above neutral in order to improve gait mechanics and mobility for driving LTG Duration 12 weeks Assessment Summary Assessment Pt tolerated session well, reports no increase in R ankle pain with exercises. Initiated ankle 4 way for gentle strengthening. Cued for control especially with eccentric motion to maximize ROM and muscle activation, which reduces pt reports of peroneal subluxation with eversion/inversion. Pt does not have increased discomfort with calf stretches, but is limited to 1 minute as max time. Good response to resisted stepping to promote hip strength and neutral ankle positioning during ambulation . Pt responds well to manual therapy for pain reduction but requires different hand placement to ensure comfort. Pt would benefit from skilled PT for R ankle mobility and strengthening to improve symptom reduction and proprioception during ADLs/ functional mobility. Physical Therapy Plan Frequency and Duration Frequency of Treatment 1x/Week Duration of treatment (weeks) 12 Plan of Care Start Date 12/13/23 Plan of Care End Date 03/07/24 Therapeutic Interventions Therapeutic Interventions Balance Training,Gait Training ,Home Exercise Program,Joint Mobilizations,Manual Therapy, Neuromuscular Re-education, Orthotic/Prosthetic Management ,Patient/Caregiver Education, Self-Care/Home Management, Sensory Integration,Soft Tissue Mobilization,Taping, Therapeutic Activities, Therapeutic Exercises Modalities Cold Pack/Ice Massage,Electric Stimulation,Hot Packs, Ultrasound Next Visit Focus/Plan Next Note Type Treatment Note Next Visit Plan Ankle mobilizations, calf stretch, baps, progress ankle eversion/inversion with band, DF mobilization with band, trial heel raises and toe raises at wall cont hip strengthening: resisted stepping, squat w/ band, s/l hip abduction, resisted hip flexion, step up proprioception: SLS, cone taps update HEP weekly
--- NOTE | 2024-01-01 10:48 | PT.OTN ---
Current Diagnoses Pain in left elbow (01/01/24) Pain in right ankle and joints of right foot (01/01/24) Stiffness of left elbow, not elsewhere classified (01/01/24) Stiffness of right ankle, not elsewhere classified (01/01/24) Other lack of coordination (01/01/24) Weakness (01/01/24) Physical Therapy Treatment Note PT-OP-A Visit Information Start: 12/13/23 09:03 Freq: Status: Active Protocol: Document 01/01/24 08:16 AB (Rec: 01/01/24 09:47 AB [id number]) Out-Patient Physical Therapy Visit Information Visit Information Visit Type Treatment Note Visit Note Fin Visit Start Time 09:03 Visit Stop Time 09:46 Visit Number 07/22 Evaluation Information Evaluation Date 12/13/23 PT-OP-B Current Condition Start: 12/13/23 09:03 Freq: Status: Active Protocol: Document 12/13/23 09:03 NM (Rec: 12/13/23 09:47 NM [id number]) Current Condition History of Current Condition Current Complaints pain, decreased mobility and stability History of Current Condition Pt presents with R ankle pain. It is chronic condition, 10 years ago from injury. Pt was chasing after her son in a jump house, jumping over the wedge, hit the outside of her ankle and landed. She was assessed for a sprain and fracture, was casted and booted; she had 2 cycles of PRP and an arthroscopy to remove scar tissue. She reports that is was manageable ; however, now she feels like a tendon is catching in the ankle when she moves. She occasionally gets a sharp pain that makes her leg give out. She has been wearing supportive hiking boots; worse with: driving (pressing pedal ), taekwondo w/ twisting or lateral movements, uneven ground ambulation, unable to run, car transfer. No recent imaging. Ok to stand or walk unless prolonged due to repetitive movement; no limitation due to distance/ time. She has been doing taekwondo for a year (dec 2022), states that catching started in the spring 2022. Has tried ankle compression sleeve which helps but does not stop the problem. Pt also presents with L elbow pain for 8 months. She reports that she though it was achy. She states was progressively getting worse. About 1 month ago, she states that it was the worse that it ever was. States burning on outside of ankle, hurts with box brander/twist or reaching w/ gripping, driving and steering. She also has occasional shoulder pain. States no known JOSE ALFREDO. She states that on an evening, she has rest it on a pillow. 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 Patient reports the muscles are sore a little after performing the exercises. PT-OP-D Balance Start: 12/13/23 09:03 Freq: Status: Active Protocol: Document 12/13/23 09:03 NM (Rec: 12/13/23 09:47 NM [id number]) Balance Tests Single Limb Standing Single Limb- Right 10 seconds, painful Single Limb- Left 30 seconds PT-OP-E Functional Tests Start: 12/13/23 09:03 Freq: Status: Active Protocol: Document 12/13/23 09:03 NM (Rec: 12/13/23 09:47 NM [id number]) Functional Tests Other DF test Name of Test measured from 4 finger position (toe) to wall, heel down on ground Score R 3.5 cm, L 0 cm PT-OP-F Manual Assessment Start: 12/13/23 09:03 Freq: Status: Active Protocol: Document 12/13/23 09:03 NM (Rec: 12/13/23 09:47 NM [id number]) Manual Assessments Soft Tissue Assessment Soft Tissue Mobility Assessment elbow- decreased length of biceps muscle, increased tone in extensor wad ankle- increased swelling at R ankle along lateral side, decreased length of achilles Joint Mobility Assessment Joint Mobility Assessment elbow- increased muscle guarding, no increased instability compared to R elbow, unable to fully extend elbow ankle- increased movement in sagittal plane with anterior drawer along with increased pain, no increased pain with other medial or lateral ligamentous testing or forceful ankle dorsiflexion PT-OP-G Mobility & Gait Start: 12/13/23 09:03 Freq: Status: Active Protocol: Document 12/13/23 09:03 NM (Rec: 12/13/23 10:04 NM [id number]) OP Gait Assessment Gait Distance (Feet) 150 Comments Gait Comments Antalgic gait with R stance, demos decreased stance time and dorsiflexion on RLE. Less propulsion on RLE and slight ER PT-OP-J Posture/Palpation/Skin Start: 12/13/23 09:03 Freq: Status: Active Protocol: Document 12/13/23 09:03 NM (Rec: 12/13/23 10:04 NM [id number]) Posture Evaluation Position Standing Head/C-Spine Posture Forward Head Arm Posture (L) Neutral,(R) Neutral Pelvis Posture Anteriorly Tilted Weight Distribution Weight Shifted Left Hip Posture (L) Externally Rotated,(R) Externally Rotated Knee Posture (L) Genu Valgus,(R) Genu Valgus Ankle/Foot Posture (L) Supinated,(R) Supinated Foot Arch (L) Medium Arch,(R) Medium Arch Comments Posture Comments Increased carrying elbow angle bilaterally, hyperextension of R knee in stance Palpation Assessment Location L elbow Palpation Details Tenderness along B joint line lateral > medial, lateral extenor wad and lateral epidcondyle no tenderness along olecranon or biceps/triceps near insertion R ankle Palpation Details Tenderness along anterior ankle near sinus tarsi, ankle mortise, and lateral malleolus Increased swelling along ankle across B malleoli No tenderness along rays or tarsals, calcaneus, malleoli PT-OP-K Range of Motion Start: 12/13/23 09:03 Freq: Status: Active Protocol: Document 12/13/23 09:03 NM (Rec: 12/13/23 09:47 NM [id number]) Cervical Spine Range of Motion Cervical Spine Active Degrees Rotation Left 70 Rotation Right 80 Comments full flex/ext, LF; no pain Shoulder Goniometric Range of Motion Shoulder Right Flexion 170 Abduction 140 External Rotation at 90 degrees 80 Abduction Internal Rotation Behind Back (text) T7 Left Flexion 166 Abduction 165 External Rotation at 90 degrees 80 Abduction Internal Rotation Behind Back (text) T9 Elbow/Forearm Range of Motion Elbow/Forearm Right Elbow Flexion (degrees) 144 Elbow Extension (degrees) 0 Pronation (degrees) 90 Supination (degrees) 80 Left Elbow Flexion (degrees) 140 Elbow Extension (degrees) 10 Pronation (degrees) 90 Supination (degrees) 90 Comments pain with pronation, sup w/ flex Ankle and Foot Goniometric Range of Motion Ankle and Foot Right Plantarflexion 45 Inversion 10 Eversion 10 Comments minimal ROM into inversion, eversion but denies pain; lacking 10 deg DF from neutral Left Dorsiflexion with Knee Flexed 6 Plantarflexion 50 Inversion 30 Eversion 20 PT-OP-L Special Tests Start: 12/13/23 09:03 Freq: Status: Active Protocol: Document 12/13/23 09:03 NM (Rec: 12/13/23 10:04 NM [id number]) Special Tests Cervical Spine Special Tests Traction Comments assess next session Spurling's Test Test Results - Elbow Special Tests Lateral epicondylitis tests Comments + palpation + 3rd finger ext + lateral epicondylitis test flex > ext Hook test Test Results able to palpate and hook distal biceps tendon Zeeson's Biceps Test Results - Varus Test Results - Comments increased guarding Valgus Test Results - Comments increased guarding Foot/Ankle Special Tests Peroneal Subluxation Test Results - Srinivasan Test Results - Talar tilt Test Results - Anterior drawer Test Results + Neural Special Tests- Upper Body Elbow Flexion Test Test Results - Tinel Sign Test Results - Comments ulnar n PT-OP-M Strength Start: 12/13/23 09:03 Freq: Status: Active Protocol: Document 12/13/23 09:03 NM (Rec: 12/13/23 09:47 NM [id number]) Shoulder Strength Shoulder Manual Muscle Testing Right Flexion 4+ Good+ Abduction (C5) 4+ Good+ External Rotation 4+ Good+ Internal Rotation 4+ Good+ Left Flexion 4+ Good+ Abduction (C5) 4+ Good+ External Rotation 4+ Good+ Internal Rotation 4+ Good+ Elbow/Forearm Strength Elbow and Forearm Manual Muscle Testing Right Flexion (C6) 4+ Good+ Extension (C7) 4+ Good+ Pronation 4+ Good+ Supination 4+ Good+ Left Flexion (C6) 4 Good Extension (C7) 4 Good Pronation 4- Good- Supination 4- Good- Comments no pain with resisted motion Hip Strength Hip Manual Muscle Testing Right Flexion (L2) 4 Good Extension (S1) 4 Good Abduction 4- Good- Adduction 4 Good Left Flexion (L2) 4 Good Extension (S1) 4 Good Abduction 4 Good Adduction 4 Good Knee Strength Knee Manual Muscle Testing Right Flexion (S2) 4 Good Extension (L3) 4- Good- Left Flexion (S2) 4+ Good+ Extension (L3) 4+ Good+ Ankle/Foot Strength Ankle and Foot Manual Muscle Testing Right Dorsiflexion (L4) 4- Good- Plantarflexion (S1) 3 Fair Inversion 4- Good- Eversion (S1) 4- Good- Comments 2 single leg heel raise Left Dorsiflexion (L4) 4+ Good+ Plantarflexion (S1) 4 Good Inversion 4+ Good+ Eversion (S1) 4+ Good+ Comments 18 single leg heel raise PT-OP-Q Treatments Start: 12/13/23 09:03 Freq: Status: Active Protocol: Document 01/01/24 08:16 AB (Rec: 01/01/24 09:47 AB [id number]) Therapeutic Exercises Supine Exercises ankle pumps Supine Exercise Name 1. AROM Side right Reps/Minutes 30 X [address] Sitting Exercise Name HEP: ankle DF, * DF only this session ( inversion, eversion, PF) Side right Resistance level 2 band Reps/Minutes 3X10 * 2X 10 with band X 10 X 1 without Comments Pt ed to perform without band also at home HEP Standing Exercises Heel raise toe raise Side bilateral Reps/Minutes X15 each exercise Comments Verbal cues to lower heels and toes to floor slowly calf stretch Standing Exercise Name HEP: 1. gastrocnemius, 2. soleus Side bilateral Equipment Used staggered stance at wall Reps/Minutes 60 ea X2 *60 sec to HEP Gait Training Gait Activity heel toe pattern Treatment Focus heel to pattern and avoiding excessive toeing out. Comments Verbal cues to avoid excessive toeing out and focus on heel toe pattern, pushing off great toe Manual Therapy Treatment Soft Tissue Mobilization R ankle Body Location right calf, popliteal area and for swelling right ankle Mobilization Type Rolling,Strumming,Other Body Position Hooklying Joint Mobilizations R ankle Joint AP PA distal tib/fib, MWM TC AP Grade II Reps/Duration X10 X 3 each Comments Monitored for pain, verbal cues for MWM PT-OP-T Assessment and Plan Start: 12/13/23 09:03 Freq: Status: Active Protocol: Document 01/01/24 08:16 AB (Rec: 01/01/24 09:47 AB [id number]) Physical Therapy Assessment Goals Five Impairment L elbow strength Short Term Goal (STG) If appropriate, Pt will improve L elbow global strength to at least 4+/5 without increase in baseline pain in order to demonstrate improvements in box brander strength for driving and ability to lift STG Duration 10 weeks Ham Pumper Goal (LTG) Pt will report no increase in baseline pain in L elbow or limitations during driving in order to demonstrate improved symptom management and QOL LTG Duration 12 weeks Four Impairment L elbow extension limited by 10 deg Short Term Goal (STG) If appropriate, Pt will improve L elbow extension by at least 5 deg in order to be able to extend arm fully for gripping, lifting, and driving STG Duration 8 weeks Usp Goal (LTG) If appropriate, Pt will improve L elbow extension to at least 2 deg in order to be able to extend arm fully for gripping, lifting, and driving LTG Duration 12 weeks Three Impairment strength Short Term Goal (STG) Pt will increase R global ankle strength to at least 4/5 MMT in order to demonstrate improved strength for gait, tae tuan do, and endurance while driving STG Duration 6 weeks Ham Pumper Goal (LTG) Pt will improve R ankle single leg heel raises to within 3 of LLE, in addition to 4+/5 R ankle strength globally in order to demonstrate improved strength for gait, tae tuan do and endurance while driving LTG Duration 8 weeks Two Impairment ankle AROM limitations in eversion and inversion 10 deg ea Short Term Goal (STG) Pt will increase R ankle inversion AROM to at least 20 deg and R ankle eversion ROM to at least 12 deg in order to demonstrate improved mobility for stability during stance and gait STG Duration 8 weeks Usp Goal (LTG) Pt will increase R ankle inversion AROM to at least 30 deg and R ankle eversion ROM to at least 15 deg in order to demonstrate improved mobility for stability during stance and gait LTG Duration 12 weeks One Impairment ankle ROM DF limitations lacking 10 deg from neutral Short Term Goal (STG) Pt will improve R ankle dorsiflexion AROM to at least neutral in order to improve gait mechanics and mobility for driving STG Duration 8 weeks Ham Pumper Goal (LTG) Pt will improve R ankle dorsiflexion AROM to at least 5 deg above neutral in order to improve gait mechanics and mobility for driving LTG Duration 12 weeks Assessment Summary Assessment Patient bettye standing DF and PF and stretch increased to 60 seconds this session. Fin reports her ankle feels looser end of session. Physical Therapy Plan Frequency and Duration Frequency of Treatment 1x/Week Duration of treatment (weeks) 12 Plan of Care Start Date 12/13/23 Plan of Care End Date 03/07/24 Next Visit Focus/Plan Next Note Type Treatment Note Next Visit Plan Ankle mobilizations, calf stretch, baps, progress ankle eversion/inversion with band, DF mobilization with band, assess tolerance to trial heel raises and toe raises at wall cont hip strengthening: resisted stepping, NEXT SESSION squat w/ band, s/l hip abduction, resisted hip flexion, step up proprioception: SLS, cone taps update HEP weekly
--- NOTE | 2024-01-10 10:57 | PT.OTN ---
Current Diagnoses Pain in left elbow (01/10/24) Pain in right ankle and joints of right foot (01/10/24) Stiffness of left elbow, not elsewhere classified (01/10/24) Stiffness of right ankle, not elsewhere classified (01/10/24) Other lack of coordination (01/10/24) Weakness (01/10/24) Physical Therapy Treatment Note PT-OP-A Visit Information Start: 12/13/23 09:03 Freq: Status: Active Protocol: Document 01/10/24 08:05 AB (Rec: 01/10/24 10:57 AB [id number]) Out-Patient Physical Therapy Visit Information Visit Information Visit Type Treatment Note Visit Note Fin [email or web address] Access Code: [email or web address] Visit Start Time 09:49 Visit Stop Time 10:33 Visit Number 08/22 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 It is chronic condition, 10 years ago from injury. Pt was chasing after her son in a jump house, jumping over the wedge, hit the outside of her ankle and landed. She was assessed for a sprain and fracture, was casted and booted; she had 2 cycles of PRP and an arthroscopy to remove scar tissue. She reports that is was manageable ; however, now she feels like a tendon is catching in the ankle when she moves. She occasionally gets a sharp pain that makes her leg give out. She has been wearing supportive hiking boots; worse with: driving (pressing pedal ), taekwondo w/ twisting or lateral movements, uneven ground ambulation, unable to run, car transfer. No recent imaging. Ok to stand or walk unless prolonged due to repetitive movement; no limitation due to distance/ time. She has been doing taekwondo for a year (dec 2022), states that catching started in the spring 2022. Has tried ankle compression sleeve which helps but does not stop the problem. Pt also presents with L elbow pain for 8 months. She reports that she though it was achy. She states was progressively getting worse. About 1 month ago, she states that it was the worse that it ever was. States burning on outside of ankle, hurts with clinical exercise specialist/twist or reaching w/ gripping, driving and steering. She also has occasional shoulder pain. States no known JOSE ALFREDO. She states that on an evening, she has rest it on a pillow. 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 Patient reports elbow is a little sore, attributes to moving luggage. Patient reports ankle is a bit more sore today attributes to last weeks activities, comments the exercises helped. PT-OP-D Balance Start: 12/13/23 09:03 Freq: Status: Active Protocol: Document 12/13/23 09:03 NM (Rec: 12/13/23 09:47 NM [id number]) Balance Tests Single Limb Standing Single Limb- Right 10 seconds, painful Single Limb- Left 30 seconds PT-OP-E Functional Tests Start: 12/13/23 09:03 Freq: Status: Active Protocol: Document 12/13/23 09:03 NM (Rec: 12/13/23 09:47 NM [id number]) Functional Tests Other DF test Name of Test measured from 4 finger position (toe) to wall, heel down on ground Score R 3.5 cm, L 0 cm PT-OP-F Manual Assessment Start: 12/13/23 09:03 Freq: Status: Active Protocol: Document 12/13/23 09:03 NM (Rec: 12/13/23 09:47 NM [id number]) Manual Assessments Soft Tissue Assessment Soft Tissue Mobility Assessment elbow- decreased length of biceps muscle, increased tone in extensor wad ankle- increased swelling at R ankle along lateral side, decreased length of achilles Joint Mobility Assessment Joint Mobility Assessment elbow- increased muscle guarding, no increased instability compared to R elbow, unable to fully extend elbow ankle- increased movement in sagittal plane with anterior drawer along with increased pain, no increased pain with other medial or lateral ligamentous testing or forceful ankle dorsiflexion PT-OP-G Mobility & Gait Start: 12/13/23 09:03 Freq: Status: Active Protocol: Document 12/13/23 09:03 NM (Rec: 12/13/23 10:04 NM [id number]) OP Gait Assessment Gait Distance (Feet) 150 Comments Gait Comments Antalgic gait with R stance, demos decreased stance time and dorsiflexion on RLE. Less propulsion on RLE and slight ER PT-OP-J Posture/Palpation/Skin Start: 12/13/23 09:03 Freq: Status: Active Protocol: Document 12/13/23 09:03 NM (Rec: 12/13/23 10:04 NM [id number]) Posture Evaluation Position Standing Head/C-Spine Posture Forward Head Arm Posture (L) Neutral,(R) Neutral Pelvis Posture Anteriorly Tilted Weight Distribution Weight Shifted Left Hip Posture (L) Externally Rotated,(R) Externally Rotated Knee Posture (L) Genu Valgus,(R) Genu Valgus Ankle/Foot Posture (L) Supinated,(R) Supinated Foot Arch (L) Medium Arch,(R) Medium Arch Comments Posture Comments Increased carrying elbow angle bilaterally, hyperextension of R knee in stance Palpation Assessment Location L elbow Palpation Details Tenderness along B joint line lateral > medial, lateral extenor wad and lateral epidcondyle no tenderness along olecranon or biceps/triceps near insertion R ankle Palpation Details Tenderness along anterior ankle near sinus tarsi, ankle mortise, and lateral malleolus Increased swelling along ankle across B malleoli No tenderness along rays or tarsals, calcaneus, malleoli PT-OP-K Range of Motion Start: 12/13/23 09:03 Freq: Status: Active Protocol: Document 12/13/23 09:03 NM (Rec: 12/13/23 09:47 NM [id number]) Cervical Spine Range of Motion Cervical Spine Active Degrees Rotation Left 70 Rotation Right 80 Comments full flex/ext, LF; no pain Shoulder Goniometric Range of Motion Shoulder Right Flexion 170 Abduction 140 External Rotation at 90 degrees 80 Abduction Internal Rotation Behind Back (text) T7 Left Flexion 166 Abduction 165 External Rotation at 90 degrees 80 Abduction Internal Rotation Behind Back (text) T9 Elbow/Forearm Range of Motion Elbow/Forearm Right Elbow Flexion (degrees) 144 Elbow Extension (degrees) 0 Pronation (degrees) 90 Supination (degrees) 80 Left Elbow Flexion (degrees) 140 Elbow Extension (degrees) 10 Pronation (degrees) 90 Supination (degrees) 90 Comments pain with pronation, sup w/ flex Ankle and Foot Goniometric Range of Motion Ankle and Foot Right Plantarflexion 45 Inversion 10 Eversion 10 Comments minimal ROM into inversion, eversion but denies pain; lacking 10 deg DF from neutral Left Dorsiflexion with Knee Flexed 6 Plantarflexion 50 Inversion 30 Eversion 20 PT-OP-L Special Tests Start: 12/13/23 09:03 Freq: Status: Active Protocol: Document 12/13/23 09:03 NM (Rec: 12/13/23 10:04 NM [id number]) Special Tests Cervical Spine Special Tests Traction Comments assess next session Spurling's Test Test Results - Elbow Special Tests Lateral epicondylitis tests Comments + palpation + 3rd finger ext + lateral epicondylitis test flex > ext Hook test Test Results able to palpate and hook distal biceps tendon Yergason's Biceps Test Results - Varus Test Results - Comments increased guarding Valgus Test Results - Comments increased guarding Foot/Ankle Special Tests Peroneal Subluxation Test Results - Srinivasan Test Results - Talar tilt Test Results - Anterior drawer Test Results + Neural Special Tests- Upper Body Elbow Flexion Test Test Results - Tinel Sign Test Results - Comments ulnar n PT-OP-M Strength Start: 12/13/23 09:03 Freq: Status: Active Protocol: Document 12/13/23 09:03 NM (Rec: 12/13/23 09:47 NM [id number]) Shoulder Strength Shoulder Manual Muscle Testing Right Flexion 4+ Good+ Abduction (C5) 4+ Good+ External Rotation 4+ Good+ Internal Rotation 4+ Good+ Left Flexion 4+ Good+ Abduction (C5) 4+ Good+ External Rotation 4+ Good+ Internal Rotation 4+ Good+ Elbow/Forearm Strength Elbow and Forearm Manual Muscle Testing Right Flexion (C6) 4+ Good+ Extension (C7) 4+ Good+ Pronation 4+ Good+ Supination 4+ Good+ Left Flexion (C6) 4 Good Extension (C7) 4 Good Pronation 4- Good- Supination 4- Good- Comments no pain with resisted motion Hip Strength Hip Manual Muscle Testing Right Flexion (L2) 4 Good Extension (S1) 4 Good Abduction 4- Good- Adduction 4 Good Left Flexion (L2) 4 Good Extension (S1) 4 Good Abduction 4 Good Adduction 4 Good Knee Strength Knee Manual Muscle Testing Right Flexion (S2) 4 Good Extension (L3) 4- Good- Left Flexion (S2) 4+ Good+ Extension (L3) 4+ Good+ Ankle/Foot Strength Ankle and Foot Manual Muscle Testing Right Dorsiflexion (L4) 4- Good- Plantarflexion (S1) 3 Fair Inversion 4- Good- Eversion (S1) 4- Good- Comments 2 single leg heel raise Left Dorsiflexion (L4) 4+ Good+ Plantarflexion (S1) 4 Good Inversion 4+ Good+ Eversion (S1) 4+ Good+ Comments 18 single leg heel raise PT-OP-Q Treatments Start: 12/13/23 09:03 Freq: Status: Active Protocol: Document 01/10/24 08:05 AB (Rec: 01/10/24 10:57 AB [id number]) Therapeutic Exercises Sitting Exercises seated hip abd with band Sitting Exercise Name HEP Side bilateral Resistance level 4 band Reps/Minutes one min X 1 Comments verbal cues AROM DF Sitting Exercise Name post manual Side bilateral Reps/Minutes X15 Standing Exercises squat with band Standing Exercise Name HEP Side bilateral Resistance level 4 band Reps/Minutes 3X10 Comments Verbal and visual cues, Pt ed self tactile cues for hip hinge self tc mobilzation Standing Exercise Name lunge with LE on step with UE support, level 4 band TC area Side right Reps/Minutes X10 calf stretch Standing Exercise Name HEP: 1. gastrocnemius, 2. soleus Side bilateral Equipment Used staggered stance at wall Reps/Minutes 60 ea X1 *60 sec to HEP Comments second trial on soleus right not completed Manual Therapy Treatment Soft Tissue Mobilization left elbow Mobilization Type Cross-Friction,Myofascial Release,Other Intensity/Depth Moderate Body Position Hooklying R ankle Body Location right calf, popliteal area and for swelling right ankle Mobilization Type Cross-Friction,Rolling,Other Intensity/Depth Moderate Body Position Hooklying Joint Mobilizations Mulligan with movement Joint left elbow tennis elbow Direction lat Grade II Body Position Hooklying Reps/Duration initiated X2 X 4 on second trial Comments Patient reports pain on initiation of first trial and discontinued, post STM patient reports tolerating, but pain did not decrease with gripping and mobilization was discontinued post 4 repts R ankle Joint AP PA distal tib/fib, MWM TC AP Grade II Reps/Duration X10 X 3 each Comments Monitored for pain, verbal cues for MWM Self-Care/Home Management Treatment Education Other Education Patient ed to attempt soleus stretch daily, but discontinue if stretch is not felt in calf and discomfort occurs in foot or ankle. PT-OP-T Assessment and Plan Start: 12/13/23 09:03 Freq: Status: Active Protocol: Document 01/10/24 08:05 AB (Rec: 01/10/24 10:57 AB [id number]) Physical Therapy Assessment Goals Five Impairment L elbow strength Short Term Goal (STG) If appropriate, Pt will improve L elbow global strength to at least 4+/5 without increase in baseline pain in order to demonstrate improvements in clinical exercise specialist strength for driving and ability to lift STG Duration 10 weeks Spinneret Person Goal (LTG) Pt will report no increase in baseline pain in L elbow or limitations during driving in order to demonstrate improved symptom management and QOL LTG Duration 12 weeks Four Impairment L elbow extension limited by 10 deg Short Term Goal (STG) If appropriate, Pt will improve L elbow extension by at least 5 deg in order to be able to extend arm fully for gripping, lifting, and driving STG Duration 8 weeks Spinneret Person Goal (LTG) If appropriate, Pt will improve L elbow extension to at least 2 deg in order to be able to extend arm fully for gripping, lifting, and driving LTG Duration 12 weeks Three Impairment strength Short Term Goal (STG) Pt will increase R global ankle strength to at least 4/5 MMT in order to demonstrate improved strength for gait, tae tuan do, and endurance while driving STG Duration 6 weeks Spinneret Person Goal (LTG) Pt will improve R ankle single leg heel raises to within 3 of LLE, in addition to 4+/5 R ankle strength globally in order to demonstrate improved strength for gait, tae tuan do and endurance while driving LTG Duration 8 weeks Two Impairment ankle AROM limitations in eversion and inversion 10 deg ea Short Term Goal (STG) Pt will increase R ankle inversion AROM to at least 20 deg and R ankle eversion ROM to at least 12 deg in order to demonstrate improved mobility for stability during stance and gait STG Duration 8 weeks Spinneret Person Goal (LTG) Pt will increase R ankle inversion AROM to at least 30 deg and R ankle eversion ROM to at least 15 deg in order to demonstrate improved mobility for stability during stance and gait LTG Duration 12 weeks One Impairment ankle ROM DF limitations lacking 10 deg from neutral Short Term Goal (STG) Pt will improve R ankle dorsiflexion AROM to at least neutral in order to improve gait mechanics and mobility for driving STG Duration 8 weeks Half-Way Goal (LTG) Pt will improve R ankle dorsiflexion AROM to at least 5 deg above neutral in order to improve gait mechanics and mobility for driving LTG Duration 12 weeks Assessment Summary Assessment Fin reports ache left elbow is better end of session. Decreased bettye to Soleus stretch on right this session, reports feeling not much to nothing in the calf muscles, just feeling it in ankle and foot. Physical Therapy Plan Frequency and Duration Frequency of Treatment 1x/Week Duration of treatment (weeks) 12 Plan of Care Start Date 12/13/23 Plan of Care End Date 03/07/24 Next Visit Focus/Plan Next Note Type Treatment Note Next Visit Plan Ankle mobilizations(Possibly self TC mobilization to HEP), calf stretch, baps, progress ankle eversion/inversion with band, DF mobilization with band, assess tolerance to trial heel raises and toe raises at wall cont hip strengthening: resisted stepping, s/l hip abduction, resisted hip flexion, step up proprioception: SLS, cone taps update HEP weekly
--- NOTE | 2024-01-16 12:59 | PT.OTN ---
Current Diagnoses Pain in left elbow (01/16/24) Pain in right ankle and joints of right foot (01/16/24) Stiffness of left elbow, not elsewhere classified (01/16/24) Stiffness of right ankle, not elsewhere classified (01/16/24) Other lack of coordination (01/16/24) Weakness (01/16/24) Physical Therapy Treatment Note PT-OP-A Visit Information Start: 12/13/23 09:03 Freq: Status: Active Protocol: Document 01/16/24 07:58 NM (Rec: 01/16/24 08:00 NM [id number]) Out-Patient Physical Therapy Visit Information Visit Information Visit Type Progress Note Visit Note Fin Visit Start Time 11:17 Visit Stop Time 12:00 Visit Number 09/21 Evaluation Information Evaluation Date 12/13/23 PT-OP-B Current Condition Start: 12/13/23 09:03 Freq: Status: Active Protocol: Document 12/13/23 09:03 NM (Rec: 12/13/23 09:47 NM [id number]) Current Condition History of Current Condition Current Complaints pain, decreased mobility and stability History of Current Condition Pt presents with R ankle pain. It is chronic condition, 10 years ago from injury. Pt was chasing after her son in a jump house, jumping over the wedge, hit the outside of her ankle and landed. She was assessed for a sprain and fracture, was casted and booted; she had 2 cycles of PRP and an arthroscopy to remove scar tissue. She reports that is was manageable ; however, now she feels like a tendon is catching in the ankle when she moves. She occasionally gets a sharp pain that makes her leg give out. She has been wearing supportive hiking boots; worse with: driving (pressing pedal ), taekwondo w/ twisting or lateral movements, uneven ground ambulation, unable to run, car transfer. No recent imaging. Ok to stand or walk unless prolonged due to repetitive movement; no limitation due to distance/ time. She has been doing taekwondo for a year (dec 2022), states that catching started in the spring 2022. Has tried ankle compression sleeve which helps but does not stop the problem. Pt also presents with L elbow pain for 8 months. She reports that she though it was achy. She states was progressively getting worse. About 1 month ago, she states that it was the worse that it ever was. States burning on outside of ankle, hurts with weigher and charger/twist or reaching w/ gripping, driving and steering. She also has occasional shoulder pain. States no known JOSE ALFREDO. She states that on an evening, she has rest it on a pillow. 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 She reports compliance with exercises. She still wants to focus more on her ankle than her elbow. Pt reports that her ankle is less painful, states less catching and nerve pain when moving in the last month. She still reports that the exercises are still preventing her at the ankle. Pt reports more strength but states that the DF is still limited. States that nerve burst is less; reports less swelling. Patient Reported Progress Improving PT-OP-D Balance Start: 12/13/23 09:03 Freq: Status: Active Protocol: Document 12/13/23 09:03 NM (Rec: 12/13/23 09:47 NM [id number]) Balance Tests Single Limb Standing Single Limb- Right 10 seconds, painful Single Limb- Left 30 seconds PT-OP-E Functional Tests Start: 12/13/23 09:03 Freq: Status: Active Protocol: Document 12/13/23 09:03 NM (Rec: 12/13/23 09:47 NM [id number]) Functional Tests Other DF test Name of Test measured from 4 finger position (toe) to wall, heel down on ground Score R 3.5 cm, L 0 cm PT-OP-F Manual Assessment Start: 12/13/23 09:03 Freq: Status: Active Protocol: Document 12/13/23 09:03 NM (Rec: 12/13/23 09:47 NM [id number]) Manual Assessments Soft Tissue Assessment Soft Tissue Mobility Assessment elbow- decreased length of biceps muscle, increased tone in extensor wad ankle- increased swelling at R ankle along lateral side, decreased length of achilles Joint Mobility Assessment Joint Mobility Assessment elbow- increased muscle guarding, no increased instability compared to R elbow, unable to fully extend elbow ankle- increased movement in sagittal plane with anterior drawer along with increased pain, no increased pain with other medial or lateral ligamentous testing or forceful ankle dorsiflexion PT-OP-G Mobility & Gait Start: 12/13/23 09:03 Freq: Status: Active Protocol: Document 12/13/23 09:03 NM (Rec: 12/13/23 10:04 NM [id number]) OP Gait Assessment Gait Distance (Feet) 150 Comments Gait Comments Antalgic gait with R stance, demos decreased stance time and dorsiflexion on RLE. Less propulsion on RLE and slight ER PT-OP-J Posture/Palpation/Skin Start: 12/13/23 09:03 Freq: Status: Active Protocol: Document 12/13/23 09:03 NM (Rec: 12/13/23 10:04 NM [id number]) Posture Evaluation Position Standing Head/C-Spine Posture Forward Head Arm Posture (L) Neutral,(R) Neutral Pelvis Posture Anteriorly Tilted Weight Distribution Weight Shifted Left Hip Posture (L) Externally Rotated,(R) Externally Rotated Knee Posture (L) Genu Valgus,(R) Genu Valgus Ankle/Foot Posture (L) Supinated,(R) Supinated Foot Arch (L) Medium Arch,(R) Medium Arch Comments Posture Comments Increased carrying elbow angle bilaterally, hyperextension of R knee in stance Palpation Assessment Location L elbow Palpation Details Tenderness along B joint line lateral > medial, lateral extenor wad and lateral epidcondyle no tenderness along olecranon or biceps/triceps near insertion R ankle Palpation Details Tenderness along anterior ankle near sinus tarsi, ankle mortise, and lateral malleolus Increased swelling along ankle across B malleoli No tenderness along rays or tarsals, calcaneus, malleoli PT-OP-K Range of Motion Start: 12/13/23 09:03 Freq: Status: Active Protocol: Document 01/16/24 07:58 NM (Rec: 01/16/24 08:00 NM [id number]) Elbow/Forearm Range of Motion Elbow/Forearm Left Elbow Flexion (degrees) 140 Elbow Extension (degrees) 10 Pronation (degrees) 90 Supination (degrees) 90 Comments pain with pronation, sup w/ flex 01/16/24: lacking 9 deg of extension Ankle and Foot Goniometric Range of Motion Ankle and Foot Right Plantarflexion 45 Inversion 10 Eversion 10 Comments minimal ROM into inversion, eversion but denies pain; lacking 10 deg DF from neutral 01/16/24: 12 deg ev, 18 deg inv , 3 deg above neutral DF, 45 deg PF Left Dorsiflexion with Knee Flexed 6 Plantarflexion 50 Inversion 30 Eversion 20 PT-OP-L Special Tests Start: 12/13/23 09:03 Freq: Status: Active Protocol: Document 12/13/23 09:03 NM (Rec: 12/13/23 10:04 NM [id number]) Special Tests Cervical Spine Special Tests Traction Comments assess next session Spurling's Test Test Results - Elbow Special Tests Lateral epicondylitis tests Comments + palpation + 3rd finger ext + lateral epicondylitis test flex > ext Hook test Test Results able to palpate and hook distal biceps tendon Ashley's Biceps Test Results - Varus Test Results - Comments increased guarding Valgus Test Results - Comments increased guarding Foot/Ankle Special Tests Peroneal Subluxation Test Results - Srinivasan Test Results - Talar tilt Test Results - Anterior drawer Test Results + Neural Special Tests- Upper Body Elbow Flexion Test Test Results - Tinel Sign Test Results - Comments ulnar n PT-OP-M Strength Start: 12/13/23 09:03 Freq: Status: Active Protocol: Document 01/16/24 07:58 NM (Rec: 01/16/24 08:00 NM [id number]) Elbow/Forearm Strength Elbow and Forearm Manual Muscle Testing Left Flexion (C6) 4 Good Extension (C7) 4 Good Pronation 4- Good- Supination 4- Good- Comments no pain with resisted motion 01/16/24: 4/5 w/o pain Ankle/Foot Strength Ankle and Foot Manual Muscle Testing Right Dorsiflexion (L4) 4- Good- Plantarflexion (S1) 3 Fair Inversion 4- Good- Eversion (S1) 4- Good- Comments 2 single leg heel raise 01/16/24: 4/5; tested in sitting Left Dorsiflexion (L4) 4+ Good+ Plantarflexion (S1) 4 Good Inversion 4+ Good+ Eversion (S1) 4+ Good+ Comments 18 single leg heel raise PT-OP-Q Treatments Start: 12/13/23 09:03 Freq: Status: Active Protocol: Document 01/16/24 07:58 NM (Rec: 01/16/24 08:00 NM [id number]) Therapeutic Exercises Sitting Exercises wrist pronation/supination Sitting Exercise Name 1. pronation, 2. supination Side left Resistance AROM > 1# Reps/Minutes 15 ea Comments minor discomfort at end range supination wrist flex/ext Sitting Exercise Name 1. flex, 2. ext Side left Resistance AROM > 1# db Reps/Minutes 15 ea Comments tolerates flex to neutral only ; cued to remain w/i painfree range wrist flexor/extensor stretch Sitting Exercise Name 1. flex, 2. ext Side left Reps/Minutes 2x30 ea Manual Therapy Treatment Consent Patient gave verbal consent for manual Yes treatment Soft Tissue Mobilization left elbow Body Location medial and lateral muscles Mobilization Type Cross-Friction,Myofascial Release,Other Intensity/Depth Moderate Body Position Hooklying Comments Increased tenderness and palpable bulge along medial elbow, d/c manual to medial elbow due to pain R ankle Body Location right calf, popliteal area, peroneals, swelling right ankle Mobilization Type Cross-Friction,Rolling,Other Intensity/Depth Moderate Body Position Hooklying Comments Increased restrictions and tenderness along calf Joint Mobilizations L elbow Direction PA and AP w/ flex/ext Grade II Body Position Hooklying Reps/Duration 2x30 ea Comments Moving into extension. Monitored for pain R ankle Joint AP PA distal tib/fib, MWM TC AP Grade II Reps/Duration 2x30 ea Comments Monitored for pain Neuro Re-Education Treatment Balance Activities SLS Reps/Duration 8 minutes Comments 1. hip [address] way with mirror for visual feedback With small squat 2. SL RDL with mirror for visual feedback Cueing for form PT-OP-T Assessment and Plan Start: 12/13/23 09:03 Freq: Status: Active Protocol: Document 01/16/24 07:58 NM (Rec: 01/16/24 08:00 NM [id number]) Physical Therapy Assessment Goals Five Impairment L elbow strength Short Term Goal (STG) If appropriate, Pt will improve L elbow global strength to at least 4+/5 without increase in baseline pain in order to demonstrate improvements in weigher and charger strength for driving and ability to lift 01/16/24: 4/5; no pain but Feels it burning with extension end range STG Duration 10 weeks Mcc Goal (LTG) Pt will report no increase in baseline pain in L elbow or limitations during driving in order to demonstrate improved symptom management and QOL LTG Duration 12 weeks Four Impairment L elbow extension limited by 10 deg Short Term Goal (STG) If appropriate, Pt will improve L elbow extension by at least 5 deg in order to be able to extend arm fully for gripping, lifting, and driving 01/16/24: 9 deg lacking STG Duration 8 weeks PROGRESSING [employer] Officer Goal (LTG) If appropriate, Pt will improve L elbow extension to at least 2 deg in order to be able to extend arm fully for gripping, lifting, and driving LTG Duration 12 weeks Three Impairment strength Short Term Goal (STG) Pt will increase R global ankle strength to at least 4/5 MMT in order to demonstrate improved strength for gait, tae tuan do, and endurance while driving 01/16/24: 4/5 for all; PF tested in sitting due to time STG Duration 6 weeks PROGRESSING Mcc Goal (LTG) Pt will improve R ankle single leg heel raises to within 3 of LLE, in addition to 4+/5 R ankle strength globally in order to demonstrate improved strength for gait, tae tuan do and endurance while driving LTG Duration 8 weeks Two Impairment ankle AROM limitations in eversion and inversion 10 deg ea Short Term Goal (STG) Pt will increase R ankle inversion AROM to at least 20 deg and R ankle eversion ROM to at least 12 deg in order to demonstrate improved mobility for stability during stance and gait 01/16/24: 12 deg ev, 18 deg inv STG Duration 8 weeks PROGRESSING; PARTIALLY MET [employer] Officer Goal (LTG) Pt will increase R ankle inversion AROM to at least 30 deg and R ankle eversion ROM to at least 15 deg in order to demonstrate improved mobility for stability during stance and gait LTG Duration 12 weeks One Impairment ankle ROM DF limitations lacking 10 deg from neutral Short Term Goal (STG) Pt will improve R ankle dorsiflexion AROM to at least neutral in order to improve gait mechanics and mobility for driving 01/16/24: 3 deg above neutral STG Duration 8 weeks [employer] Officer Goal (LTG) Pt will improve R ankle dorsiflexion AROM to at least 5 deg above neutral in order to improve gait mechanics and mobility for driving LTG Duration 12 weeks Progress Towards Goals Progress Towards Goals Progressing Toward Goals Progress Comments Demonstrates improvements in ROM and strength for elbow and ankle but still limited overall Assessment Summary Assessment Pt tolerated session fair. Reports mild increase in L elbow pain at end of session. Pt has palpable bulge above medial epicondyle, which is tender and does not feel better with soft tissue mobilization. Trialed elbow extension mobilization to improve extension ROM. Pt has good response to wrist flex/ extension stretches. She reports increased symptoms with wrist flexion above neutral. Pt continues to demonstrate decreased R ankle proprioception in SLS; however , pain free, just difficulty with maintaining stability. Physical Therapy Plan Frequency and Duration Frequency of Treatment 1x/Week Duration of treatment (weeks) 12 Plan of Care Start Date 12/13/23 Plan of Care End Date 03/07/24 Therapeutic Interventions Therapeutic Interventions Balance Training,Gait Training ,Home Exercise Program,Joint Mobilizations,Manual Therapy, Neuromuscular Re-education, Orthotic/Prosthetic Management ,Patient/Caregiver Education, Self-Care/Home Management, Sensory Integration,Soft Tissue Mobilization,Taping, Therapeutic Activities, Therapeutic Exercises Modalities Cold Pack/Ice Massage,Electric Stimulation,Hot Packs, Ultrasound Next Visit Focus/Plan Next Note Type Treatment Note Next Visit Plan Reassess tolerance to wrist/ elbow stretches and strengthening. Pt wants to focus on ankle strengthening trial heel raises and toe raises at wall; hip 3 way with band, step up, leg press cont hip strengthening: resisted stepping, s/l hip abduction, resisted hip flexion, step up proprioception: SLS, cone taps , stable/unstable surface Ankle and elbow mobilizations and STM update HEP weekly
--- NOTE | 2024-01-23 11:29 | PT.OTN ---
Current Diagnoses Pain in left elbow (01/23/24) Pain in right ankle and joints of right foot (01/23/24) Stiffness of left elbow, not elsewhere classified (01/23/24) Stiffness of right ankle, not elsewhere classified (01/23/24) Other lack of coordination (01/23/24) Weakness (01/23/24) Physical Therapy Treatment Note PT-OP-A Visit Information Start: 12/13/23 09:03 Freq: Status: Active Protocol: Document 01/23/24 09:12 AB (Rec: 01/23/24 11:28 AB [id number]) Out-Patient Physical Therapy Visit Information Visit Information Visit Type Treatment Note Visit Note Fin [id number] Visit Start Time 10:33 Visit Stop Time 11:19 Visit Number 10/22 Evaluation Information Evaluation Date 12/13/23 PT-OP-B Current Condition Start: 12/13/23 09:03 Freq: Status: Active Protocol: Document 12/13/23 09:03 NM (Rec: 12/13/23 09:47 NM [id number]) Current Condition History of Current Condition Current Complaints pain, decreased mobility and stability History of Current Condition Pt presents with R ankle pain. It is chronic condition, 10 years ago from injury. Pt was chasing after her son in a jump house, jumping over the wedge, hit the outside of her ankle and landed. She was assessed for a sprain and fracture, was casted and booted; she had 2 cycles of PRP and an arthroscopy to remove scar tissue. She reports that is was manageable ; however, now she feels like a tendon is catching in the ankle when she moves. She occasionally gets a sharp pain that makes her leg give out. She has been wearing supportive hiking boots; worse with: driving (pressing pedal ), taekwondo w/ twisting or lateral movements, uneven ground ambulation, unable to run, car transfer. No recent imaging. Ok to stand or walk unless prolonged due to repetitive movement; no limitation due to distance/ time. She has been doing taekwondo for a year (dec 2022), states that catching started in the spring 2022. Has tried ankle compression sleeve which helps but does not stop the problem. Pt also presents with L elbow pain for 8 months. She reports that she though it was achy. She states was progressively getting worse. About 1 month ago, she states that it was the worse that it ever was. States burning on outside of ankle, hurts with service inspector/twist or reaching w/ gripping, driving and steering. She also has occasional shoulder pain. States no known JOSE ALFREDO. She states that on an evening, she has rest it on a pillow. 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 Patient reports ankle is giving out more than usual this week, reports twice yesterday and almost daily over the past week. Pt reports kicking and jumping are where giving occurs most. PT-OP-D Balance Start: 12/13/23 09:03 Freq: Status: Active Protocol: Document 12/13/23 09:03 NM (Rec: 12/13/23 09:47 NM [id number]) Balance Tests Single Limb Standing Single Limb- Right 10 seconds, painful Single Limb- Left 30 seconds PT-OP-E Functional Tests Start: 12/13/23 09:03 Freq: Status: Active Protocol: Document 12/13/23 09:03 NM (Rec: 12/13/23 09:47 NM [id number]) Functional Tests Other DF test Name of Test measured from 4 finger position (toe) to wall, heel down on ground Score R 3.5 cm, L 0 cm PT-OP-F Manual Assessment Start: 12/13/23 09:03 Freq: Status: Active Protocol: Document 12/13/23 09:03 NM (Rec: 12/13/23 09:47 NM [id number]) Manual Assessments Soft Tissue Assessment Soft Tissue Mobility Assessment elbow- decreased length of biceps muscle, increased tone in extensor wad ankle- increased swelling at R ankle along lateral side, decreased length of achilles Joint Mobility Assessment Joint Mobility Assessment elbow- increased muscle guarding, no increased instability compared to R elbow, unable to fully extend elbow ankle- increased movement in sagittal plane with anterior drawer along with increased pain, no increased pain with other medial or lateral ligamentous testing or forceful ankle dorsiflexion PT-OP-G Mobility & Gait Start: 12/13/23 09:03 Freq: Status: Active Protocol: Document 12/13/23 09:03 NM (Rec: 12/13/23 10:04 NM [id number]) OP Gait Assessment Gait Distance (Feet) 150 Comments Gait Comments Antalgic gait with R stance, demos decreased stance time and dorsiflexion on RLE. Less propulsion on RLE and slight ER PT-OP-J Posture/Palpation/Skin Start: 12/13/23 09:03 Freq: Status: Active Protocol: Document 12/13/23 09:03 NM (Rec: 12/13/23 10:04 NM [id number]) Posture Evaluation Position Standing Head/C-Spine Posture Forward Head Arm Posture (L) Neutral,(R) Neutral Pelvis Posture Anteriorly Tilted Weight Distribution Weight Shifted Left Hip Posture (L) Externally Rotated,(R) Externally Rotated Knee Posture (L) Genu Valgus,(R) Genu Valgus Ankle/Foot Posture (L) Supinated,(R) Supinated Foot Arch (L) Medium Arch,(R) Medium Arch Comments Posture Comments Increased carrying elbow angle bilaterally, hyperextension of R knee in stance Palpation Assessment Location L elbow Palpation Details Tenderness along B joint line lateral > medial, lateral extenor wad and lateral epidcondyle no tenderness along olecranon or biceps/triceps near insertion R ankle Palpation Details Tenderness along anterior ankle near sinus tarsi, ankle mortise, and lateral malleolus Increased swelling along ankle across B malleoli No tenderness along rays or tarsals, calcaneus, malleoli PT-OP-K Range of Motion Start: 12/13/23 09:03 Freq: Status: Active Protocol: Document 01/16/24 07:58 NM (Rec: 01/16/24 08:00 NM [id number]) Elbow/Forearm Range of Motion Elbow/Forearm Left Elbow Flexion (degrees) 140 Elbow Extension (degrees) 10 Pronation (degrees) 90 Supination (degrees) 90 Comments pain with pronation, sup w/ flex 01/16/24: lacking 9 deg of extension Ankle and Foot Goniometric Range of Motion Ankle and Foot Right Plantarflexion 45 Inversion 10 Eversion 10 Comments minimal ROM into inversion, eversion but denies pain; lacking 10 deg DF from neutral 01/16/24: 12 deg ev, 18 deg inv , 3 deg above neutral DF, 45 deg PF Left Dorsiflexion with Knee Flexed 6 Plantarflexion 50 Inversion 30 Eversion 20 PT-OP-L Special Tests Start: 12/13/23 09:03 Freq: Status: Active Protocol: Document 12/13/23 09:03 NM (Rec: 12/13/23 10:04 NM [id number]) Special Tests Cervical Spine Special Tests Traction Comments assess next session Spurling's Test Test Results - Elbow Special Tests Lateral epicondylitis tests Comments + palpation + 3rd finger ext + lateral epicondylitis test flex > ext Hook test Test Results able to palpate and hook distal biceps tendon Ashley's Biceps Test Results - Varus Test Results - Comments increased guarding Valgus Test Results - Comments increased guarding Foot/Ankle Special Tests Peroneal Subluxation Test Results - Srinivasan Test Results - Talar tilt Test Results - Anterior drawer Test Results + Neural Special Tests- Upper Body Elbow Flexion Test Test Results - Tinel Sign Test Results - Comments ulnar n PT-OP-M Strength Start: 12/13/23 09:03 Freq: Status: Active Protocol: Document 01/16/24 07:58 NM (Rec: 01/16/24 08:00 NM [id number]) Elbow/Forearm Strength Elbow and Forearm Manual Muscle Testing Left Flexion (C6) 4 Good Extension (C7) 4 Good Pronation 4- Good- Supination 4- Good- Comments no pain with resisted motion 01/16/24: 4/5 w/o pain Ankle/Foot Strength Ankle and Foot Manual Muscle Testing Right Dorsiflexion (L4) 4- Good- Plantarflexion (S1) 3 Fair Inversion 4- Good- Eversion (S1) 4- Good- Comments 2 single leg heel raise 01/16/24: 4/5; tested in sitting Left Dorsiflexion (L4) 4+ Good+ Plantarflexion (S1) 4 Good Inversion 4+ Good+ Eversion (S1) 4+ Good+ Comments 18 single leg heel raise PT-OP-Q Treatments Start: 12/13/23 09:03 Freq: Status: Active Protocol: Document 01/23/24 09:12 AB (Rec: 01/23/24 11:28 AB [id number]) Therapeutic Exercises Sitting Exercises seated hip abd with band Sitting Exercise Name HEP Side bilateral Resistance level 4 band Reps/Minutes one min X 1 Comments verbal cues Standing Exercises single leg squat 3 way Standing Exercise Name with UE support Side bilateral Reps/Minutes X3X2 left and right LE X 2 right LE with level one band for tact cue Comments Unable to perform without dynamic valgus, initiates with ips SB right LE glute med isometric Standing Exercise Name HEP Side bilateral Reps/Minutes one minute each LE Comments verbal and visual cues squat with band Standing Exercise Name HEP Side bilateral Resistance level 5 band Reps/Minutes X3 Comments discontinued due to reports of popping sensation left hip. Heel raise toe raise Standing Exercise Name toe raise nly Side bilateral Reps/Minutes X20 resisted stepping Side bilateral Resistance level 3 band at thighs Reps/Minutes 2x10 ft ea Comments VC for squat positioning calf stretch Standing Exercise Name Soleus and gastroc on DIANA Reps/Minutes 60 sec each X 2 Manual Therapy Treatment Soft Tissue Mobilization R ankle Body Location bilateral ankles Mobilization Type Cross-Friction,Rolling Intensity/Depth Moderate Body Position Prone Comments prior to stretch Joint Mobilizations R ankle Joint MWM TC AP Grade III Reps/Duration X10 X3 Comments Monitored for pain PT-OP-T Assessment and Plan Start: 12/13/23 09:03 Freq: Status: Active Protocol: Document 01/23/24 09:12 AB (Rec: 01/23/24 11:28 AB [id number]) Physical Therapy Assessment Goals Five Impairment L elbow strength Short Term Goal (STG) If appropriate, Pt will improve L elbow global strength to at least 4+/5 without increase in baseline pain in order to demonstrate improvements in service inspector strength for driving and ability to lift 01/16/24: 4/5; no pain but Feels it burning with extension end range STG Duration 10 weeks Shelter Goal (LTG) Pt will report no increase in baseline pain in L elbow or limitations during driving in order to demonstrate improved symptom management and QOL LTG Duration 12 weeks Four Impairment L elbow extension limited by 10 deg Short Term Goal (STG) If appropriate, Pt will improve L elbow extension by at least 5 deg in order to be able to extend arm fully for gripping, lifting, and driving 01/16/24: 9 deg lacking STG Duration 8 weeks PROGRESSING Oral Surgery Assistant Goal (LTG) If appropriate, Pt will improve L elbow extension to at least 2 deg in order to be able to extend arm fully for gripping, lifting, and driving LTG Duration 12 weeks Three Impairment strength Short Term Goal (STG) Pt will increase R global ankle strength to at least 4/5 MMT in order to demonstrate improved strength for gait, tae tuan do, and endurance while driving 01/16/24: 4/5 for all; PF tested in sitting due to time STG Duration 6 weeks PROGRESSING Shelter Goal (LTG) Pt will improve R ankle single leg heel raises to within 3 of LLE, in addition to 4+/5 R ankle strength globally in order to demonstrate improved strength for gait, tae tuan do and endurance while driving LTG Duration 8 weeks Two Impairment ankle AROM limitations in eversion and inversion 10 deg ea Short Term Goal (STG) Pt will increase R ankle inversion AROM to at least 20 deg and R ankle eversion ROM to at least 12 deg in order to demonstrate improved mobility for stability during stance and gait 01/16/24: 12 deg ev, 18 deg inv STG Duration 8 weeks PROGRESSING; PARTIALLY MET Oral Surgery Assistant Goal (LTG) Pt will increase R ankle inversion AROM to at least 30 deg and R ankle eversion ROM to at least 15 deg in order to demonstrate improved mobility for stability during stance and gait LTG Duration 12 weeks One Impairment ankle ROM DF limitations lacking 10 deg from neutral Short Term Goal (STG) Pt will improve R ankle dorsiflexion AROM to at least neutral in order to improve gait mechanics and mobility for driving 01/16/24: 3 deg above neutral STG Duration 8 weeks Shelter Goal (LTG) Pt will improve R ankle dorsiflexion AROM to at least 5 deg above neutral in order to improve gait mechanics and mobility for driving LTG Duration 12 weeks Assessment Summary Assessment Patient reports popping sensation with trial of level 5 band with squat end of session, gesturing to left hip , reports no pain during or post. Patient advised to not perform Single leg squat ex at this time and to modify jumps during other activities/ classes ie avoid jumps. Physical Therapy Plan Frequency and Duration Frequency of Treatment 1x/Week Duration of treatment (weeks) 12 Plan of Care Start Date 12/13/23 Plan of Care End Date 11/08/24 Next Visit Focus/Plan Next Note Type Treatment Note Next Visit Plan Reassess tolerance to wrist/ elbow stretches and strengthening. Pt wants to focus on ankle strengthening trial heel raises and toe raises at wall; hip 3 way with band, step up, leg press cont hip strengthening: resisted stepping, s/l hip abduction, resisted hip flexion, step up proprioception: SLS, cone taps , stable/unstable surface Ankle and elbow mobilizations and STM update HEP weekly
--- NOTE | 2024-01-30 12:19 | PT.OTN ---
Current Diagnoses Pain in left elbow (01/30/24) Pain in right ankle and joints of right foot (01/30/24) Stiffness of left elbow, not elsewhere classified (01/30/24) Stiffness of right ankle, not elsewhere classified (01/30/24) Other lack of coordination (01/30/24) Weakness (01/30/24) Physical Therapy Treatment Note PT-OP-A Visit Information Start: 12/13/23 09:03 Freq: Status: Active Protocol: Document 01/30/24 08:49 AB (Rec: 01/30/24 12:19 AB [id number]) Out-Patient Physical Therapy Visit Information Visit Information Visit Type Treatment Note Visit Note Fin [id number] Visit Start Time 10:46 Visit Stop Time 11:32 Visit Number 11/21 Number of LIVESTOCK BREEDER Visits 2 PT-OP-B Current Condition Start: 12/13/23 09:03 Freq: Status: Active Protocol: Document 12/13/23 09:03 NM (Rec: 12/13/23 09:47 NM [id number]) Current Condition History of Current Condition Current Complaints pain, decreased mobility and stability History of Current Condition Pt presents with R ankle pain. It is chronic condition, 10 years ago from injury. Pt was chasing after her son in a jump house, jumping over the wedge, hit the outside of her ankle and landed. She was assessed for a sprain and fracture, was casted and booted; she had 2 cycles of PRP and an arthroscopy to remove scar tissue. She reports that is was manageable ; however, now she feels like a tendon is catching in the ankle when she moves. She occasionally gets a sharp pain that makes her leg give out. She has been wearing supportive hiking boots; worse with: driving (pressing pedal ), taekwondo w/ twisting or lateral movements, uneven ground ambulation, unable to run, car transfer. No recent imaging. Ok to stand or walk unless prolonged due to repetitive movement; no limitation due to distance/ time. She has been doing taekwondo for a year (dec 2022), states that catching started in the spring 2022. Has tried ankle compression sleeve which helps but does not stop the problem. Pt also presents with L elbow pain for 8 months. She reports that she though it was achy. She states was progressively getting worse. About 1 month ago, she states that it was the worse that it ever was. 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 She also has occasional shoulder pain. States no known JOSE ALFREDO. She states that on an evening, she has rest it on a pillow. 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 Patient stopped weightbearing ankle exercises and band 2 days ago. Patient rates right foot pain 4/10 ambulating into session, left just feels tighter. PT-OP-D Balance Start: 12/13/23 09:03 Freq: Status: Active Protocol: Document 12/13/23 09:03 NM (Rec: 12/13/23 09:47 NM [id number]) Balance Tests Single Limb Standing Single Limb- Right 10 seconds, painful Single Limb- Left 30 seconds PT-OP-E Functional Tests Start: 12/13/23 09:03 Freq: Status: Active Protocol: Document 12/13/23 09:03 NM (Rec: 12/13/23 09:47 NM [id number]) Functional Tests Other DF test Name of Test measured from 4 finger position (toe) to wall, heel down on ground Score R 3.5 cm, L 0 cm PT-OP-F Manual Assessment Start: 12/13/23 09:03 Freq: Status: Active Protocol: Document 12/13/23 09:03 NM (Rec: 12/13/23 09:47 NM [id number]) Manual Assessments Soft Tissue Assessment Soft Tissue Mobility Assessment elbow- decreased length of biceps muscle, increased tone in extensor wad ankle- increased swelling at R ankle along lateral side, decreased length of achilles Joint Mobility Assessment Joint Mobility Assessment elbow- increased muscle guarding, no increased instability compared to R elbow, unable to fully extend elbow ankle- increased movement in sagittal plane with anterior drawer along with increased pain, no increased pain with other medial or lateral ligamentous testing or forceful ankle dorsiflexion PT-OP-G Mobility & Gait Start: 12/13/23 09:03 Freq: Status: Active Protocol: Document 12/13/23 09:03 NM (Rec: 12/13/23 10:04 NM [id number]) OP Gait Assessment Gait Distance (Feet) 150 Comments Gait Comments Antalgic gait with R stance, demos decreased stance time and dorsiflexion on RLE. Less propulsion on RLE and slight ER PT-OP-J Posture/Palpation/Skin Start: 12/13/23 09:03 Freq: Status: Active Protocol: Document 12/13/23 09:03 NM (Rec: 12/13/23 10:04 NM [id number]) Posture Evaluation Position Standing Head/C-Spine Posture Forward Head Arm Posture (L) Neutral,(R) Neutral Pelvis Posture Anteriorly Tilted Weight Distribution Weight Shifted Left Hip Posture (L) Externally Rotated,(R) Externally Rotated Knee Posture (L) Genu Valgus,(R) Genu Valgus Ankle/Foot Posture (L) Supinated,(R) Supinated Foot Arch (L) Medium Arch,(R) Medium Arch Comments Posture Comments Increased carrying elbow angle bilaterally, hyperextension of R knee in stance Palpation Assessment Location L elbow Palpation Details Tenderness along B joint line lateral > medial, lateral extenor wad and lateral epidcondyle no tenderness along olecranon or biceps/triceps near insertion R ankle Palpation Details Tenderness along anterior ankle near sinus tarsi, ankle mortise, and lateral malleolus Increased swelling along ankle across B malleoli No tenderness along rays or tarsals, calcaneus, malleoli PT-OP-K Range of Motion Start: 12/13/23 09:03 Freq: Status: Active Protocol: Document 01/16/24 07:58 NM (Rec: 01/16/24 08:00 NM [id number]) Elbow/Forearm Range of Motion Elbow/Forearm Left Elbow Flexion (degrees) 140 Elbow Extension (degrees) 10 Pronation (degrees) 90 Supination (degrees) 90 Comments pain with pronation, sup w/ flex 01/16/24: lacking 9 deg of extension Ankle and Foot Goniometric Range of Motion Ankle and Foot Right Plantarflexion 45 Inversion 10 Eversion 10 Comments minimal ROM into inversion, eversion but denies pain; lacking 10 deg DF from neutral 01/16/24: 12 deg ev, 18 deg inv , 3 deg above neutral DF, 45 deg PF Left Dorsiflexion with Knee Flexed 6 Plantarflexion 50 Inversion 30 Eversion 20 PT-OP-L Special Tests Start: 12/13/23 09:03 Freq: Status: Active Protocol: Document 12/13/23 09:03 NM (Rec: 12/13/23 10:04 NM [id number]) Special Tests Cervical Spine Special Tests Traction Comments assess next session Spurling's Test Test Results - Elbow Special Tests Lateral epicondylitis tests Comments + palpation + 3rd finger ext + lateral epicondylitis test flex > ext Hook test Test Results able to palpate and hook distal biceps tendon Yedennis's Biceps Test Results - Varus Test Results - Comments increased guarding Valgus Test Results - Comments increased guarding Foot/Ankle Special Tests Peroneal Subluxation Test Results - Srinivasan Test Results - Talar tilt Test Results - Anterior drawer Test Results + Neural Special Tests- Upper Body Elbow Flexion Test Test Results - Tinel Sign Test Results - Comments ulnar n PT-OP-M Strength Start: 12/13/23 09:03 Freq: Status: Active Protocol: Document 01/16/24 07:58 NM (Rec: 01/16/24 08:00 NM [id number]) Elbow/Forearm Strength Elbow and Forearm Manual Muscle Testing Left Flexion (C6) 4 Good Extension (C7) 4 Good Pronation 4- Good- Supination 4- Good- Comments no pain with resisted motion 01/16/24: 4/5 w/o pain Ankle/Foot Strength Ankle and Foot Manual Muscle Testing Right Dorsiflexion (L4) 4- Good- Plantarflexion (S1) 3 Fair Inversion 4- Good- Eversion (S1) 4- Good- Comments 2 single leg heel raise 01/16/24: 4/5; tested in sitting Left Dorsiflexion (L4) 4+ Good+ Plantarflexion (S1) 4 Good Inversion 4+ Good+ Eversion (S1) 4+ Good+ Comments 18 single leg heel raise PT-OP-Q Treatments Start: 12/13/23 09:03 Freq: Status: Active Protocol: Document 01/30/24 08:49 AB (Rec: 01/30/24 12:19 AB [id number]) Therapeutic Exercises Supine Exercises piriformis stretch Supine Exercise Name 1. knee across pirif 2. figure 4 Side right Reps/Minutes trial X 1 each Comments reports sensation groin with piriform at right back/ quadratus area with fig ankle pumps Supine Exercise Name 1. AROM Side right Reps/Minutes 30 X 2 Sitting Exercises seated hip abd with band Sitting Exercise Name HEP Side bilateral Resistance level 5 band Reps/Minutes one min X 1 Comments verbal cues AROM DF Sitting Exercise Name post manual Side bilateral Reps/Minutes X17 AROM then X 15 with level one band Standing Exercises resisted stepping Side bilateral Resistance level 4 band at thighs Reps/Minutes 4 ft ea Comments not bettye, limited by increased toe pain right LE calf stretch Standing Exercise Name Soleus and gastroc on DIANA Reps/Minutes 60 sec each X 2 Manual Therapy Treatment Soft Tissue Mobilization R ankle Body Location bilateral ankles Mobilization Type Cross-Friction,Rolling Intensity/Depth Moderate Body Position Prone Comments prior to stretch Joint Mobilizations R ankle Joint MWM TC AP, tib/fib AP and PA X10 X2 Grade III Reps/Duration X10 X3 Comments Monitored for pain PT-OP-T Assessment and Plan Start: 12/13/23 09:03 Freq: Status: Active Protocol: Document 01/30/24 08:49 AB (Rec: 01/30/24 12:19 AB [id number]) Physical Therapy Assessment Goals Five Impairment L elbow strength Short Term Goal (STG) If appropriate, Pt will improve L elbow global strength to at least 4+/5 without increase in baseline pain in order to 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 and ability to lift 01/16/24: 4/5; no pain but Feels it burning with extension end range STG Duration 10 weeks Personal Development Coach Goal (LTG) Pt will report no increase in baseline pain in L elbow or limitations during driving in order to demonstrate improved symptom management and QOL LTG Duration 12 weeks Four Impairment L elbow extension limited by 10 deg Short Term Goal (STG) If appropriate, Pt will improve L elbow extension by at least 5 deg in order to be able to extend arm fully for gripping, lifting, and driving 01/16/24: 9 deg lacking STG Duration 8 weeks PROGRESSING Personal Development Coach Goal (LTG) If appropriate, Pt will improve L elbow extension to at least 2 deg in order to be able to extend arm fully for gripping, lifting, and driving LTG Duration 12 weeks Three Impairment strength Short Term Goal (STG) Pt will increase R global ankle strength to at least 4/5 MMT in order to demonstrate improved strength for gait, tae tuan do, and endurance while driving 01/16/24: 4/5 for all; PF tested in sitting due to time STG Duration 6 weeks PROGRESSING Personal Development Coach Goal (LTG) Pt will improve R ankle single leg heel raises to within 3 of LLE, in addition to 4+/5 R ankle strength globally in order to demonstrate improved strength for gait, tae tuan do and endurance while driving LTG Duration 8 weeks Two Impairment ankle AROM limitations in eversion and inversion 10 deg ea Short Term Goal (STG) Pt will increase R ankle inversion AROM to at least 20 deg and R ankle eversion ROM to at least 12 deg in order to demonstrate improved mobility for stability during stance and gait 01/16/24: 12 deg ev, 18 deg inv STG Duration 8 weeks PROGRESSING; PARTIALLY MET Personal Development Coach Goal (LTG) Pt will increase R ankle inversion AROM to at least 30 deg and R ankle eversion ROM to at least 15 deg in order to demonstrate improved mobility for stability during stance and gait LTG Duration 12 weeks One Impairment ankle ROM DF limitations lacking 10 deg from neutral Short Term Goal (STG) Pt will improve R ankle dorsiflexion AROM to at least neutral in order to improve gait mechanics and mobility for driving 01/16/24: 3 deg above neutral STG Duration 8 weeks Personal Development Coach Goal (LTG) Pt will improve R ankle dorsiflexion AROM to at least 5 deg above neutral in order to improve gait mechanics and mobility for driving LTG Duration 12 weeks Assessment Summary Assessment Patient reports feeling muscles have worked, reports toe 3 goes up to 5/10 intermittently. Patient ed to HOLD ie temp discontinue standing glute med isometric and lunges. Patient bettye prog to level 5 band seated hip abd , not bettye side stepping with level 4. Physical Therapy Plan Frequency and Duration Frequency of Treatment 1x/Week Duration of treatment (weeks) 12 Plan of Care Start Date 12/13/23 Plan of Care End Date 03/07/24 Next Visit Focus/Plan Next Note Type Treatment Note Next Visit Plan Reassess tolerance to wrist/ elbow stretches and strengthening. Pt wants to focus on ankle strengthening trial heel raises and toe raises at wall; hip 3 way with band, step up, leg press cont hip strengthening: resisted stepping, s/l hip abduction, resisted hip flexion, step up proprioception: SLS, cone taps , stable/unstable surface Ankle and elbow mobilizations and STM update HEP weekly
--- NOTE | 2024-02-06 13:12 | PT.OTN ---
Current Diagnoses Pain in left elbow (02/06/24) Pain in right ankle and joints of right foot (02/06/24) Stiffness of left elbow, not elsewhere classified (02/06/24) Stiffness of right ankle, not elsewhere classified (02/06/24) Other lack of coordination (02/06/24) Weakness (02/06/24) Physical Therapy Treatment Note PT-OP-A Visit Information Start: 12/13/23 09:03 Freq: Status: Active Protocol: Document 02/06/24 10:46 NM (Rec: 02/06/24 11:33 NM [id number]) Out-Patient Physical Therapy Visit Information Visit Information Visit Type Treatment Note Visit Note Fin [id number] Visit Start Time 10:47 Visit Stop Time 11:15 Visit Number 12/22 Evaluation Information Evaluation Date 12/13/23 PT-OP-B Current Condition Start: 12/13/23 09:03 Freq: Status: Active Protocol: Document 12/13/23 09:03 NM (Rec: 12/13/23 09:47 NM [id number]) Current Condition History of Current Condition Current Complaints pain, decreased mobility and stability History of Current Condition Pt presents with R ankle pain. It is chronic condition, 10 years ago from injury. Pt was chasing after her son in a jump house, jumping over the wedge, hit the outside of her ankle and landed. She was assessed for a sprain and fracture, was casted and booted; she had 2 cycles of PRP and an arthroscopy to remove scar tissue. She reports that is was manageable ; however, now she feels like a tendon is catching in the ankle when she moves. She occasionally gets a sharp pain that makes her leg give out. She has been wearing supportive hiking boots; worse with: driving (pressing pedal ), taekwondo w/ twisting or lateral movements, uneven ground ambulation, unable to run, car transfer. No recent imaging. Ok to stand or walk unless prolonged due to repetitive movement; no limitation due to distance/ time. She has been doing taekwondo for a year (dec 2022), states that catching started in the spring 2022. Has tried ankle compression sleeve which helps but does not stop the problem. Pt also presents with L elbow pain for 8 months. She reports that she though it was achy. She states was progressively getting worse. About 1 month ago, she states that it was the worse that it ever was. 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 She also has occasional shoulder pain. States no known JOSE ALFREDO. She states that on an evening, she has rest it on a pillow. 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 Pt reports that her ankle feels stronger and aches all the time. States less catching and not giving out all week, states still not giving out with taekwondo. Still not doing single leg exercises. Was able to do jumping with taekwondo for testing. Pt reports that her elbow is getting worse. States aches all the time, aches all night and wakes her up. She reports that that the little finger is going numb, states that her shoulder is now achy, lateral muscle along wrist goes well. Worse with manipulations and driving, worse with gripping and lifting. Wants to focus on elbow today over shoulder PT-OP-D Balance Start: 12/13/23 09:03 Freq: Status: Active Protocol: Document 12/13/23 09:03 NM (Rec: 12/13/23 09:47 NM [id number]) Balance Tests Single Limb Standing Single Limb- Right 10 seconds, painful Single Limb- Left 30 seconds PT-OP-E Functional Tests Start: 12/13/23 09:03 Freq: Status: Active Protocol: Document 12/13/23 09:03 NM (Rec: 12/13/23 09:47 NM [id number]) Functional Tests Other DF test Name of Test measured from 4 finger position (toe) to wall, heel down on ground Score R 3.5 cm, L 0 cm PT-OP-F Manual Assessment Start: 12/13/23 09:03 Freq: Status: Active Protocol: Document 12/13/23 09:03 NM (Rec: 12/13/23 09:47 NM [id number]) Manual Assessments Soft Tissue Assessment Soft Tissue Mobility Assessment elbow- decreased length of biceps muscle, increased tone in extensor wad ankle- increased swelling at R ankle along lateral side, decreased length of achilles Joint Mobility Assessment Joint Mobility Assessment elbow- increased muscle guarding, no increased instability compared to R elbow, unable to fully extend elbow ankle- increased movement in sagittal plane with anterior drawer along with increased pain, no increased pain with other medial or lateral ligamentous testing or forceful ankle dorsiflexion PT-OP-G Mobility & Gait Start: 12/13/23 09:03 Freq: Status: Active Protocol: Document 12/13/23 09:03 NM (Rec: 12/13/23 10:04 NM [id number]) OP Gait Assessment Gait Distance (Feet) 150 Comments Gait Comments Antalgic gait with R stance, demos decreased stance time and dorsiflexion on RLE. Less propulsion on RLE and slight ER PT-OP-J Posture/Palpation/Skin Start: 12/13/23 09:03 Freq: Status: Active Protocol: Document 12/13/23 09:03 NM (Rec: 12/13/23 10:04 NM [id number]) Posture Evaluation Position Standing Head/C-Spine Posture Forward Head Arm Posture (L) Neutral,(R) Neutral Pelvis Posture Anteriorly Tilted Weight Distribution Weight Shifted Left Hip Posture (L) Externally Rotated,(R) Externally Rotated Knee Posture (L) Genu Valgus,(R) Genu Valgus Ankle/Foot Posture (L) Supinated,(R) Supinated Foot Arch (L) Medium Arch,(R) Medium Arch Comments Posture Comments Increased carrying elbow angle bilaterally, hyperextension of R knee in stance Palpation Assessment Location L elbow Palpation Details Tenderness along B joint line lateral > medial, lateral extenor wad and lateral epidcondyle no tenderness along olecranon or biceps/triceps near insertion R ankle Palpation Details Tenderness along anterior ankle near sinus tarsi, ankle mortise, and lateral malleolus Increased swelling along ankle across B malleoli No tenderness along rays or tarsals, calcaneus, malleoli PT-OP-K Range of Motion Start: 12/13/23 09:03 Freq: Status: Active Protocol: Document 01/16/24 07:58 NM (Rec: 01/16/24 08:00 NM [id number]) Elbow/Forearm Range of Motion Elbow/Forearm Left Elbow Flexion (degrees) 140 Elbow Extension (degrees) 10 Pronation (degrees) 90 Supination (degrees) 90 Comments pain with pronation, sup w/ flex 01/16/24: lacking 9 deg of extension Ankle and Foot Goniometric Range of Motion Ankle and Foot Right Plantarflexion 45 Inversion 10 Eversion 10 Comments minimal ROM into inversion, eversion but denies pain; lacking 10 deg DF from neutral 01/16/24: 12 deg ev, 18 deg inv , 3 deg above neutral DF, 45 deg PF Left Dorsiflexion with Knee Flexed 6 Plantarflexion 50 Inversion 30 Eversion 20 PT-OP-L Special Tests Start: 12/13/23 09:03 Freq: Status: Active Protocol: Document 12/13/23 09:03 NM (Rec: 12/13/23 10:04 NM [id number]) Special Tests Cervical Spine Special Tests Traction Comments assess next session Spurling's Test Test Results - Elbow Special Tests Lateral epicondylitis tests Comments + palpation + 3rd finger ext + lateral epicondylitis test flex > ext Hook test Test Results able to palpate and hook distal biceps tendon Ashley's Biceps Test Results - Varus Test Results - Comments increased guarding Valgus Test Results - Comments increased guarding Foot/Ankle Special Tests Peroneal Subluxation Test Results - Srinivasan Test Results - Talar tilt Test Results - Anterior drawer Test Results + Neural Special Tests- Upper Body Elbow Flexion Test Test Results - Tinel Sign Test Results - Comments ulnar n PT-OP-M Strength Start: 12/13/23 09:03 Freq: Status: Active Protocol: Document 01/16/24 07:58 NM (Rec: 01/16/24 08:00 NM [id number]) Elbow/Forearm Strength Elbow and Forearm Manual Muscle Testing Left Flexion (C6) 4 Good Extension (C7) 4 Good Pronation 4- Good- Supination 4- Good- Comments no pain with resisted motion 01/16/24: 4/5 w/o pain Ankle/Foot Strength Ankle and Foot Manual Muscle Testing Right Dorsiflexion (L4) 4- Good- Plantarflexion (S1) 3 Fair Inversion 4- Good- Eversion (S1) 4- Good- Comments 2 single leg heel raise 01/16/24: 4/5; tested in sitting Left Dorsiflexion (L4) 4+ Good+ Plantarflexion (S1) 4 Good Inversion 4+ Good+ Eversion (S1) 4+ Good+ Comments 18 single leg heel raise PT-OP-Q Treatments Start: 12/13/23 09:03 Freq: Status: Active Protocol: Document 02/06/24 10:46 NM (Rec: 02/06/24 11:33 NM [id number]) Therapeutic Exercises Sitting Exercises elbow flexion Sitting Exercise Name neutral petroleum engineer, radial deviation Side left Reps/Minutes 5x10 wrist pronation/supination Sitting Exercise Name wrist supination isometric Side left Reps/Minutes 5x10 wrist flex/ext Sitting Exercise Name isometric extension isometrics Side left Reps/Minutes 5x10 wrist flexor/extensor stretch Sitting Exercise Name 1. flex, 2. ext Side left Equipment Used cued for hand placement for better stretch Reps/Minutes 2x30 ea Comments elbow extended; pain free but limited stretch Other Exercises self soft tissue mobilization Other Exercise Name bicep, wrist extensors, wrist flexors Side left Reps/Minutes 2 minutes self mobilization Other Exercise Name lateral gapping at elbow Side left Equipment Used R assist L Reps/Minutes 15 total with slight fist Comments pain free Manual Therapy Treatment Consent Patient gave verbal consent for manual Yes treatment Soft Tissue Mobilization left elbow Body Location medial and lateral muscles Mobilization Type Cross-Friction,Myofascial Release,Other Intensity/Depth Moderate Body Position Hooklying Comments Increased restrictions of wrist extensors and wrist flexors. Less palpable bulge along medial bicep but still operator brandy. Numbness in 5th finger reduced with wrist ext STM and mobilization Joint Mobilizations L elbow Direction PA and AP w/ flex/ext, HU w/ distraction, lateral gapping MWM Grade II Body Position Hooklying Reps/Duration 2x30 ea Comments Lacking 15 deg elbow extension at start, lacking 12 deg at end. Monitored for pain. PT adjusted hand placement for pt comfort at medial elbow Other Other Manual Treatments - ULTT: median, ulnar, radial nn. No change in symptoms with spurling's or cervical traction - Tinel at elbow for ulnar n Self-Care/Home Management Treatment Education Patient Education Joint Protection,Pain Management Other Education Educated on activity modification to reduce gripping, lifting and carrying to decrease symptoms into L elbow. Recommended self STM, lateral gapping, reducing aggravating activites. Stopped previous HEP for L elbow/ wrist except for stretches to avoid symptom aggravation PT-OP-T Assessment and Plan Start: 12/13/23 09:03 Freq: Status: Active Protocol: Document 02/06/24 10:46 NM (Rec: 02/06/24 11:33 NM [id number]) Physical Therapy Assessment Goals Five Impairment L elbow strength Short Term Goal (STG) If appropriate, Pt will improve L elbow global strength to at least 4+/5 without increase in baseline pain in order to demonstrate improvements in petroleum engineer strength for driving and ability to lift 01/16/24: 4/5; no pain but Feels it burning with extension end range STG Duration 10 weeks Bridge Teacher Goal (LTG) Pt will report no increase in baseline pain in L elbow or limitations during driving in order to demonstrate improved symptom management and QOL LTG Duration 12 weeks Four Impairment L elbow extension limited by 10 deg Short Term Goal (STG) If appropriate, Pt will improve L elbow extension by at least 5 deg in order to be able to extend arm fully for gripping, lifting, and driving 01/16/24: 9 deg lacking STG Duration 8 weeks PROGRESSING Correction Goal (LTG) If appropriate, Pt will improve L elbow extension to at least 2 deg in order to be able to extend arm fully for gripping, lifting, and driving LTG Duration 12 weeks Three Impairment strength Short Term Goal (STG) Pt will increase R global ankle strength to at least 4/5 MMT in order to demonstrate improved strength for gait, tae tuan do, and endurance while driving 01/16/24: 4/5 for all; PF tested in sitting due to time STG Duration 6 weeks PROGRESSING Correction Goal (LTG) Pt will improve R ankle single leg heel raises to within 3 of LLE, in addition to 4+/5 R ankle strength globally in order to demonstrate improved strength for gait, tae tuan do and endurance while driving LTG Duration 8 weeks Two Impairment ankle AROM limitations in eversion and inversion 10 deg ea Short Term Goal (STG) Pt will increase R ankle inversion AROM to at least 20 deg and R ankle eversion ROM to at least 12 deg in order to demonstrate improved mobility for stability during stance and gait 01/16/24: 12 deg ev, 18 deg inv STG Duration 8 weeks PROGRESSING; PARTIALLY MET Correction Goal (LTG) Pt will increase R ankle inversion AROM to at least 30 deg and R ankle eversion ROM to at least 15 deg in order to demonstrate improved mobility for stability during stance and gait LTG Duration 12 weeks One Impairment ankle ROM DF limitations lacking 10 deg from neutral Short Term Goal (STG) Pt will improve R ankle dorsiflexion AROM to at least neutral in order to improve gait mechanics and mobility for driving 01/16/24: 3 deg above neutral STG Duration 8 weeks Bridge Teacher Goal (LTG) Pt will improve R ankle dorsiflexion AROM to at least 5 deg above neutral in order to improve gait mechanics and mobility for driving LTG Duration 12 weeks Assessment Summary Assessment Pt tolerated session well. Increased restrictions of L elbow flexors and extensors, in addition to L wrist extensor wad. Reduced with soft tissue mobilization. Good response to lateral gapping and elbow extension mobilization, hand position adjusted for pt comfort along medial elbow. Tested for ULTT, traction, spurling's, tinel; all negative into 5th finger. Less numbness into 5th finger following soft tissue mobilization. Initiated wrist and elbow isometrics for symptom reduction. Pt form adjusted for comfort but all pain free and no symptom aggravation during session. Educated to reduce time or intensity of isometrics before discontinuing at home if symptoms feel worse. Pt verbalizes understanding. Fin would benefit from skilled PT for L elbow ROM and strengthening in order to improve symptom management and ADL tolerance. Physical Therapy Plan Frequency and Duration Frequency of Treatment 1x/Week Duration of treatment (weeks) 12 Plan of Care Start Date 12/13/23 Plan of Care End Date 03/07/24 Therapeutic Interventions Therapeutic Interventions Balance Training,Gait Training ,Home Exercise Program,Joint Mobilizations,Manual Therapy, Neuromuscular Re-education, Orthotic/Prosthetic Management ,Patient/Caregiver Education, Self-Care/Home Management, Sensory Integration,Soft Tissue Mobilization,Taping, Therapeutic Activities, Therapeutic Exercises Modalities Cold Pack/Ice Massage,Electric Stimulation,Hot Packs, Ultrasound Next Visit Focus/Plan Next Note Type Treatment Note Next Visit Plan focus on elbow. Assess tolerance to elbow/wrist STM and mob, rod. If rod not flare symptoms, work into eccentric ROM wrist flex. Address elbow extension. Add eccentric tricep. If work on ankle: single leg heel raises and toe raises at wall; hip 3 way with band, step up, leg press; ankle proprioception proprioception: SLS, cone taps , stable/unstable surface Ankle and elbow mobilizations and STM update HEP weekly
--- NOTE | 2024-02-20 12:55 | PT.OTN ---
Current Diagnoses Pain in left elbow (02/20/24) Pain in right ankle and joints of right foot (02/20/24) Stiffness of left elbow, not elsewhere classified (02/20/24) Stiffness of right ankle, not elsewhere classified (02/20/24) Other lack of coordination (02/20/24) Weakness (02/20/24) Physical Therapy Treatment Note PT-OP-A Visit Information Start: 12/13/23 09:03 Freq: Status: Active Protocol: Document 02/20/24 09:01 AB (Rec: 02/20/24 12:55 AB [id number]) Out-Patient Physical Therapy Visit Information Visit Information Visit Type Treatment Note Visit Note Fin [id number] Visit Start Time 10:47 Visit Stop Time 11:30 Visit Number 01/22 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 It is chronic condition, 10 years ago from injury. Pt was chasing after her son in a jump house, jumping over the wedge, hit the outside of her ankle and landed. She was assessed for a sprain and fracture, was casted and booted; she had 2 cycles of PRP and an arthroscopy to remove scar tissue. She reports that is was manageable ; however, now she feels like a tendon is catching in the ankle when she moves. She occasionally gets a sharp pain that makes her leg give out. She has been wearing supportive hiking boots; worse with: driving (pressing pedal ), taekwondo w/ twisting or lateral movements, uneven ground ambulation, unable to run, car transfer. No recent imaging. Ok to stand or walk unless prolonged due to repetitive movement; no limitation due to distance/ time. She has been doing taekwondo for a year (dec 2022), states that catching started in the spring 2022. Has tried ankle compression sleeve which helps but does not stop the problem. Pt also presents with L elbow pain for 8 months. She reports that she though it was achy. She states was progressively getting worse. About 1 month ago, she states that it was the worse that it ever was. 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 She also has occasional shoulder pain. States no known JOSE ALFREDO. She states that on an evening, she has rest it on a pillow. 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 Patient reports she can feel it post performing isometrics, but not pain. PT-OP-D Balance Start: 12/13/23 09:03 Freq: Status: Active Protocol: Document 12/13/23 09:03 NM (Rec: 12/13/23 09:47 NM [id number]) Balance Tests Single Limb Standing Single Limb- Right 10 seconds, painful Single Limb- Left 30 seconds PT-OP-E Functional Tests Start: 12/13/23 09:03 Freq: Status: Active Protocol: Document 12/13/23 09:03 NM (Rec: 12/13/23 09:47 NM [id number]) Functional Tests Other DF test Name of Test measured from 4 finger position (toe) to wall, heel down on ground Score R 3.5 cm, L 0 cm PT-OP-F Manual Assessment Start: 12/13/23 09:03 Freq: Status: Active Protocol: Document 12/13/23 09:03 NM (Rec: 12/13/23 09:47 NM [id number]) Manual Assessments Soft Tissue Assessment Soft Tissue Mobility Assessment elbow- decreased length of biceps muscle, increased tone in extensor wad ankle- increased swelling at R ankle along lateral side, decreased length of achilles Joint Mobility Assessment Joint Mobility Assessment elbow- increased muscle guarding, no increased instability compared to R elbow, unable to fully extend elbow ankle- increased movement in sagittal plane with anterior drawer along with increased pain, no increased pain with other medial or lateral ligamentous testing or forceful ankle dorsiflexion PT-OP-G Mobility & Gait Start: 12/13/23 09:03 Freq: Status: Active Protocol: Document 12/13/23 09:03 NM (Rec: 12/13/23 10:04 NM [id number]) OP Gait Assessment Gait Distance (Feet) 150 Comments Gait Comments Antalgic gait with R stance, demos decreased stance time and dorsiflexion on RLE. Less propulsion on RLE and slight ER PT-OP-J Posture/Palpation/Skin Start: 12/13/23 09:03 Freq: Status: Active Protocol: Document 12/13/23 09:03 NM (Rec: 12/13/23 10:04 NM [id number]) Posture Evaluation Position Standing Head/C-Spine Posture Forward Head Arm Posture (L) Neutral,(R) Neutral Pelvis Posture Anteriorly Tilted Weight Distribution Weight Shifted Left Hip Posture (L) Externally Rotated,(R) Externally Rotated Knee Posture (L) Genu Valgus,(R) Genu Valgus Ankle/Foot Posture (L) Supinated,(R) Supinated Foot Arch (L) Medium Arch,(R) Medium Arch Comments Posture Comments Increased carrying elbow angle bilaterally, hyperextension of R knee in stance Palpation Assessment Location L elbow Palpation Details Tenderness along B joint line lateral > medial, lateral extenor wad and lateral epidcondyle no tenderness along olecranon or biceps/triceps near insertion R ankle Palpation Details Tenderness along anterior ankle near sinus tarsi, ankle mortise, and lateral malleolus Increased swelling along ankle across B malleoli No tenderness along rays or tarsals, calcaneus, malleoli PT-OP-K Range of Motion Start: 12/13/23 09:03 Freq: Status: Active Protocol: Document 01/16/24 07:58 NM (Rec: 01/16/24 08:00 NM [id number]) Elbow/Forearm Range of Motion Elbow/Forearm Left Elbow Flexion (degrees) 140 Elbow Extension (degrees) 10 Pronation (degrees) 90 Supination (degrees) 90 Comments pain with pronation, sup w/ flex 01/16/24: lacking 9 deg of extension Ankle and Foot Goniometric Range of Motion Ankle and Foot Right Plantarflexion 45 Inversion 10 Eversion 10 Comments minimal ROM into inversion, eversion but denies pain; lacking 10 deg DF from neutral 01/16/24: 12 deg ev, 18 deg inv , 3 deg above neutral DF, 45 deg PF Left Dorsiflexion with Knee Flexed 6 Plantarflexion 50 Inversion 30 Eversion 20 PT-OP-L Special Tests Start: 12/13/23 09:03 Freq: Status: Active Protocol: Document 12/13/23 09:03 NM (Rec: 12/13/23 10:04 NM [id number]) Special Tests Cervical Spine Special Tests Traction Comments assess next session Spurling's Test Test Results - Elbow Special Tests Lateral epicondylitis tests Comments + palpation + 3rd finger ext + lateral epicondylitis test flex > ext Hook test Test Results able to palpate and hook distal biceps tendon Yerdarlin's Biceps Test Results - Varus Test Results - Comments increased guarding Valgus Test Results - Comments increased guarding Foot/Ankle Special Tests Peroneal Subluxation Test Results - Srinivasan Test Results - Talar tilt Test Results - Anterior drawer Test Results + Neural Special Tests- Upper Body Elbow Flexion Test Test Results - Tinel Sign Test Results - Comments ulnar n PT-OP-M Strength Start: 12/13/23 09:03 Freq: Status: Active Protocol: Document 01/16/24 07:58 NM (Rec: 01/16/24 08:00 NM [id number]) Elbow/Forearm Strength Elbow and Forearm Manual Muscle Testing Left Flexion (C6) 4 Good Extension (C7) 4 Good Pronation 4- Good- Supination 4- Good- Comments no pain with resisted motion 01/16/24: 4/5 w/o pain Ankle/Foot Strength Ankle and Foot Manual Muscle Testing Right Dorsiflexion (L4) 4- Good- Plantarflexion (S1) 3 Fair Inversion 4- Good- Eversion (S1) 4- Good- Comments 2 single leg heel raise 01/16/24: 4/5; tested in sitting Left Dorsiflexion (L4) 4+ Good+ Plantarflexion (S1) 4 Good Inversion 4+ Good+ Eversion (S1) 4+ Good+ Comments 18 single leg heel raise PT-OP-Q Treatments Start: 12/13/23 09:03 Freq: Status: Active Protocol: Document 02/20/24 09:01 AB (Rec: 02/20/24 12:55 AB [id number]) Therapeutic Exercises Sitting Exercises short sit Sitting Exercise Name seated resting on forearm to upright Side bilateral Equipment Used HEP Reps/Minutes X10 Comments verbal cues wrist flex/ext Sitting Exercise Name isometric extension isometrics Side left Reps/Minutes 5x10 wrist flexor/extensor stretch Sitting Exercise Name 1. flex, 2. ext Side left Equipment Used cued for hand placement for better stretch Reps/Minutes 1x30 ea Comments elbow extended; pain free but limited stretch Standing Exercises Heel raise on step Standing Exercise Name HEP Side bilateral Reps/Minutes 10 Comments Verbal and visual cues glute med isometric Standing Exercise Name HEP Side bilateral Reps/Minutes one minute each LE calf stretch Standing Exercise Name Soleus and gastroc on DIANA Reps/Minutes 60 sec each X 2 Manual Therapy Treatment Soft Tissue Mobilization left elbow Body Location medial and lateral muscles Mobilization Type Cross-Friction,Myofascial Release,Other Intensity/Depth Moderate Body Position Hooklying R ankle Body Location bilateral ankles Mobilization Type Cross-Friction,Rolling Intensity/Depth Moderate Body Position Prone Comments prior to stretch PT-OP-T Assessment and Plan Start: 12/13/23 09:03 Freq: Status: Active Protocol: Document 02/20/24 09:01 AB (Rec: 02/20/24 12:55 AB [id number]) Physical Therapy Assessment Goals Five Impairment L elbow strength Short Term Goal (STG) If appropriate, Pt will improve L elbow global strength to at least 4+/5 without increase in baseline pain in order to demonstrate improvements in script writer strength for driving and ability to lift 01/16/24: 4/5; no pain but Feels it burning with extension end range STG Duration 10 weeks Halfway Goal (LTG) Pt will report no increase in baseline pain in L elbow or limitations during driving in order to demonstrate improved symptom management and QOL LTG Duration 12 weeks Four Impairment L elbow extension limited by 10 deg Short Term Goal (STG) If appropriate, Pt will improve L elbow extension by at least 5 deg in order to be able to extend arm fully for gripping, lifting, and driving 01/16/24: 9 deg lacking STG Duration 8 weeks PROGRESSING 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 Room Nurse Goal (LTG) If appropriate, Pt will improve L elbow extension to at least 2 deg in order to be able to extend arm fully for gripping, lifting, and driving LTG Duration 12 weeks Three Impairment strength Short Term Goal (STG) Pt will increase R global ankle strength to at least 4/5 MMT in order to demonstrate improved strength for gait, tae tuan do, and endurance while driving 01/16/24: 4/5 for all; PF tested in sitting due to time STG Duration 6 weeks PROGRESSING Halfway Goal (LTG) Pt will improve R ankle single leg heel raises to within 3 of LLE, in addition to 4+/5 R ankle strength globally in order to demonstrate improved strength for gait, tae tuan do and endurance while driving LTG Duration 8 weeks Two Impairment ankle AROM limitations in eversion and inversion 10 deg ea Short Term Goal (STG) Pt will increase R ankle inversion AROM to at least 20 deg and R ankle eversion ROM to at least 12 deg in order to demonstrate improved mobility for stability during stance and gait 01/16/24: 12 deg ev, 18 deg inv STG Duration 8 weeks PROGRESSING; PARTIALLY MET 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 Room Nurse Goal (LTG) Pt will increase R ankle inversion AROM to at least 30 deg and R ankle eversion ROM to at least 15 deg in order to demonstrate improved mobility for stability during stance and gait LTG Duration 12 weeks One Impairment ankle ROM DF limitations lacking 10 deg from neutral Short Term Goal (STG) Pt will improve R ankle dorsiflexion AROM to at least neutral in order to improve gait mechanics and mobility for driving 01/16/24: 3 deg above neutral STG Duration 8 weeks Halfway Goal (LTG) Pt will improve R ankle dorsiflexion AROM to at least 5 deg above neutral in order to improve gait mechanics and mobility for driving LTG Duration 12 weeks Assessment Summary Assessment Patient reports feeling muscle sore end of session, no pain. Good return demonstration and bettye to short sit and heel raise on stairs. Physical Therapy Plan Frequency and Duration Frequency of Treatment 1x/Week Duration of treatment (weeks) 12 Plan of Care Start Date 12/13/23 Plan of Care End Date 03/07/24 Next Visit Focus/Plan Next Note Type Treatment Note Next Visit Plan focus on elbow. Assess tolerance to elbow/wrist STM and mob, rod. If rod not flare symptoms, work into eccentric ROM wrist flex. Address elbow extension. Add eccentric tricep. If work on ankle: single leg heel raises and toe raises at wall; hip 3 way with band, step up, leg press; ankle proprioception proprioception: SLS, cone taps , stable/unstable surface Ankle and elbow mobilizations and STM update HEP weekly
--- NOTE | 2024-02-27 15:47 | PT.OTN ---
Current Diagnoses Pain in left elbow (02/27/24) Pain in right ankle and joints of right foot (02/27/24) Stiffness of left elbow, not elsewhere classified (02/27/24) Stiffness of right ankle, not elsewhere classified (02/27/24) Other lack of coordination (02/27/24) Weakness (02/27/24) Physical Therapy Treatment Note PT-OP-A Visit Information Start: 12/13/23 09:03 Freq: Status: Active Protocol: Document 02/27/24 14:32 NM (Rec: 02/27/24 15:45 NM [id number]) Out-Patient Physical Therapy Visit Information Visit Information Visit Type Treatment Note Visit Note Fin [id number] Visit Start Time 14:33 Visit Stop Time 15:15 Visit Number 02/21 Evaluation Information Evaluation Date 12/13/23 PT-OP-B Current Condition Start: 12/13/23 09:03 Freq: Status: Active Protocol: Document 12/13/23 09:03 NM (Rec: 12/13/23 09:47 NM [id number]) Current Condition History of Current Condition Current Complaints pain, decreased mobility and stability History of Current Condition Pt presents with R ankle pain. It is chronic condition, 10 years ago from injury. Pt was chasing after her son in a jump house, jumping over the wedge, hit the outside of her ankle and landed. She was assessed for a sprain and fracture, was casted and booted; she had 2 cycles of PRP and an arthroscopy to remove scar tissue. She reports that is was manageable ; however, now she feels like a tendon is catching in the ankle when she moves. She occasionally gets a sharp pain that makes her leg give out. She has been wearing supportive hiking boots; worse with: driving (pressing pedal ), taekwondo w/ twisting or lateral movements, uneven ground ambulation, unable to run, car transfer. No recent imaging. Ok to stand or walk unless prolonged due to repetitive movement; no limitation due to distance/ time. She has been doing taekwondo for a year (dec 2022), states that catching started in the spring 2022. Has tried ankle compression sleeve which helps but does not stop the problem. Pt also presents with L elbow pain for 8 months. She reports that she though it was achy. She states was progressively getting worse. About 1 month ago, she states that it was the worse that it ever was. States burning on outside of ankle, hurts with camp tender/twist or reaching w/ gripping, driving and steering. She also has occasional shoulder pain. States no known JOSE ALFREDO. She states that on an evening, she has rest it on a pillow. 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 States less catching in ankle and feels more stable. No longer giving out. States no longer has sharp pain, just aches. Feels like getting nervy feeling to toes on top of her foot. States not preventing her from doing anything; only feels if hours of driving or really long hike /walk. Reports did a lot of pushing, push ups, lifting, and carrying. Still has pain at elbow, states better managed. PT-OP-D Balance Start: 12/13/23 09:03 Freq: Status: Active Protocol: Document 12/13/23 09:03 NM (Rec: 12/13/23 09:47 NM [id number]) Balance Tests Single Limb Standing Single Limb- Right 10 seconds, painful Single Limb- Left 30 seconds PT-OP-E Functional Tests Start: 12/13/23 09:03 Freq: Status: Active Protocol: Document 12/13/23 09:03 NM (Rec: 12/13/23 09:47 NM [id number]) Functional Tests Other DF test Name of Test measured from 4 finger position (toe) to wall, heel down on ground Score R 3.5 cm, L 0 cm PT-OP-F Manual Assessment Start: 12/13/23 09:03 Freq: Status: Active Protocol: Document 12/13/23 09:03 NM (Rec: 12/13/23 09:47 NM [id number]) Manual Assessments Soft Tissue Assessment Soft Tissue Mobility Assessment elbow- decreased length of biceps muscle, increased tone in extensor wad ankle- increased swelling at R ankle along lateral side, decreased length of achilles Joint Mobility Assessment Joint Mobility Assessment elbow- increased muscle guarding, no increased instability compared to R elbow, unable to fully extend elbow ankle- increased movement in sagittal plane with anterior drawer along with increased pain, no increased pain with other medial or lateral ligamentous testing or forceful ankle dorsiflexion PT-OP-G Mobility & Gait Start: 12/13/23 09:03 Freq: Status: Active Protocol: Document 12/13/23 09:03 NM (Rec: 12/13/23 10:04 NM [id number]) OP Gait Assessment Gait Distance (Feet) 150 Comments Gait Comments Antalgic gait with R stance, demos decreased stance time and dorsiflexion on RLE. Less propulsion on RLE and slight ER PT-OP-J Posture/Palpation/Skin Start: 12/13/23 09:03 Freq: Status: Active Protocol: Document 12/13/23 09:03 NM (Rec: 12/13/23 10:04 NM [id number]) Posture Evaluation Position Standing Head/C-Spine Posture Forward Head Arm Posture (L) Neutral,(R) Neutral Pelvis Posture Anteriorly Tilted Weight Distribution Weight Shifted Left Hip Posture (L) Externally Rotated,(R) Externally Rotated Knee Posture (L) Genu Valgus,(R) Genu Valgus Ankle/Foot Posture (L) Supinated,(R) Supinated Foot Arch (L) Medium Arch,(R) Medium Arch Comments Posture Comments Increased carrying elbow angle bilaterally, hyperextension of R knee in stance Palpation Assessment Location L elbow Palpation Details Tenderness along B joint line lateral > medial, lateral extenor wad and lateral epidcondyle no tenderness along olecranon or biceps/triceps near insertion R ankle Palpation Details Tenderness along anterior ankle near sinus tarsi, ankle mortise, and lateral malleolus Increased swelling along ankle across B malleoli No tenderness along rays or tarsals, calcaneus, malleoli PT-OP-K Range of Motion Start: 12/13/23 09:03 Freq: Status: Active Protocol: Document 02/27/24 14:32 NM (Rec: 02/27/24 15:45 NM [id number]) Elbow/Forearm Range of Motion Elbow/Forearm Right Elbow Flexion (degrees) 144 Elbow Extension (degrees) 0 Pronation (degrees) 90 Supination (degrees) 80 Left Elbow Flexion (degrees) 140 Elbow Extension (degrees) 10 Pronation (degrees) 90 Supination (degrees) 90 Comments pain with pronation, sup w/ flex 01/16/24: lacking 9 deg of extension 02/27/24: Ankle and Foot Goniometric Range of Motion Ankle and Foot Right Plantarflexion 45 Inversion 20 Eversion 12 Comments minimal ROM into inversion, eversion but denies pain; lacking 10 deg DF from neutral 01/16/24: 12 deg ev, 18 deg inv , 3 deg above neutral DF, 45 deg PF 02/27/24: 3 deg DF Left Dorsiflexion with Knee Flexed 6 Plantarflexion 50 Inversion 30 Eversion 20 PT-OP-L Special Tests Start: 12/13/23 09:03 Freq: Status: Active Protocol: Document 12/13/23 09:03 NM (Rec: 12/13/23 10:04 NM [id number]) Special Tests Cervical Spine Special Tests Traction Comments assess next session Spurling's Test Test Results - Elbow Special Tests Lateral epicondylitis tests Comments + palpation + 3rd finger ext + lateral epicondylitis test flex > ext Hook test Test Results able to palpate and hook distal biceps tendon Yergason's Biceps Test Results - Varus Test Results - Comments increased guarding Valgus Test Results - Comments increased guarding Foot/Ankle Special Tests Peroneal Subluxation Test Results - Srinivasan Test Results - Talar tilt Test Results - Anterior drawer Test Results + Neural Special Tests- Upper Body Elbow Flexion Test Test Results - Tinel Sign Test Results - Comments ulnar n PT-OP-M Strength Start: 12/13/23 09:03 Freq: Status: Active Protocol: Document 02/27/24 14:32 NM (Rec: 02/27/24 15:45 NM [id number]) Elbow/Forearm Strength Elbow and Forearm Manual Muscle Testing Right Flexion (C6) 4+ Good+ Extension (C7) 4+ Good+ Pronation 4+ Good+ Supination 4+ Good+ Left Flexion (C6) 4+ Good+ Extension (C7) 4+ Good+ Pronation 4+ Good+ Supination 4+ Good+ Comments no pain with resisted motion 01/16/24: 4/5 w/o pain 02/27/24: 4+/5 w/o pain Ankle/Foot Strength Ankle and Foot Manual Muscle Testing Right Dorsiflexion (L4) 4+ Good+ Plantarflexion (S1) 4 Good Inversion 4+ Good+ Eversion (S1) 4+ Good+ Comments 2 single leg heel raise 01/16/24: 4/5; tested in sitting 02/27/24: 4+/5 for all; heel raises: 15 Left Dorsiflexion (L4) 4+ Good+ Plantarflexion (S1) 4 Good Inversion 4+ Good+ Eversion (S1) 4+ Good+ Comments IE: 18 single leg heel raise 02/27/24: 15 heel raises PT-OP-Q Treatments Start: 12/13/23 09:03 Freq: Status: Active Protocol: Document 02/27/24 14:32 NM (Rec: 02/27/24 15:45 NM [id number]) Therapeutic Exercises Sitting Exercises wrist flex/ext Sitting Exercise Name eccentric wrist ext Side left Reps/Minutes 10 w/ 3 ecc, 1 hold, 3 concentric Standing Exercises elbow extension Side left Resistance level 2 band Reps/Minutes 20 Comments feels appropriately in post elbow, no pain self tc mobilzation Standing Exercise Name lunge with LE on step with UE support, Side right Resistance lvl 2 band at ankle for post glide Equipment Used foot on step Reps/Minutes 10x5 Heel raise toe raise Standing Exercise Name single leg heel raise Side bilateral Reps/Minutes 15 R, 15 L Comments no pain Manual Therapy Treatment Soft Tissue Mobilization left elbow Body Location medial and lateral muscles, posterior and anterior Mobilization Type Cross-Friction,Myofascial Release,Other Intensity/Depth Moderate Body Position Hooklying Comments Palpable and tender nodules along medial, lateral, and anterior elbow. Monitored for pain. Increased tightness and trigger points along lateral muscles, no trigger points but tender along medial/anterior muscles Joint Mobilizations L elbow Direction PA and AP w/ flex/ext, HU w/ distraction, lateral gapping MWM Grade III Body Position Hooklying Reps/Duration 4x30 ea Comments Lacking 6 deg elbow extension at start, lacking 3 deg at end . Monitored for pain. PT-OP-T Assessment and Plan Start: 12/13/23 09:03 Freq: Status: Active Protocol: Document 02/27/24 14:32 NM (Rec: 02/27/24 15:45 NM [id number]) Physical Therapy Assessment Goals Five Impairment L elbow strength Short Term Goal (STG) If appropriate, Pt will improve L elbow global strength to at least 4+/5 without increase in baseline pain in order to demonstrate improvements in camp tender strength for driving and ability to lift 01/16/24: 4/5; no pain but Feels it burning with extension end range STG Duration 10 weeks [facility]iary Goal (LTG) Pt will report no increase in baseline pain in L elbow or limitations during driving in order to demonstrate improved symptom management and QOL 02/27/24: Pt reports that she still has pain in elbow p when driving, gets worse with driving LTG Duration 12 weeks NOT MET Four Impairment L elbow extension limited by 10 deg Short Term Goal (STG) If appropriate, Pt will improve L elbow extension by at least 5 deg in order to be able to extend arm fully for gripping, lifting, and driving 01/16/24: 9 deg lacking STG Duration 8 weeks PROGRESSING [facility] Goal (LTG) If appropriate, Pt will improve L elbow extension to at least 2 deg in order to be able to extend arm fully for gripping, lifting, and driving 02/27/24: lacking 6 deg of ext premanual, lacking 3 deg post manual LTG Duration 12 weeks NOT MET Three Impairment strength Short Term Goal (STG) Pt will increase R global ankle strength to at least 4/5 MMT in order to demonstrate improved strength for gait, tae tuan do, and endurance while driving 01/16/24: 4/5 for all; PF tested in sitting due to time STG Duration 6 weeks PROGRESSING [place] [employer] Specialist Goal (LTG) Pt will improve R ankle single leg heel raises to within 3 of LLE, in addition to 4+/5 R ankle strength globally in order to demonstrate improved strength for gait, tae tuan do and endurance while driving 02/27/24: 4+/5 for all, 15 single leg heel raises LTG Duration 8 weeks MET Two Impairment ankle AROM limitations in eversion and inversion 10 deg ea Short Term Goal (STG) Pt will increase R ankle inversion AROM to at least 20 deg and R ankle eversion ROM to at least 12 deg in order to demonstrate improved mobility for stability during stance and gait 01/16/24: 12 deg ev, 18 deg inv STG Duration 8 weeks MET 02/27/24 [facility] Goal (LTG) Pt will increase R ankle inversion AROM to at least 30 deg and R ankle eversion ROM to at least 15 deg in order to demonstrate improved mobility for stability during stance and gait 02/27/24: 20 deg inversion, 12 deg eversion LTG Duration 12 weeks NOT MET One Impairment ankle ROM DF limitations lacking 10 deg from neutral Short Term Goal (STG) Pt will improve R ankle dorsiflexion AROM to at least neutral in order to improve gait mechanics and mobility for driving 01/16/24: 3 deg above neutral STG Duration 8 weeks [place] [employer] Specialist Goal (LTG) Pt will improve R ankle dorsiflexion AROM to at least 5 deg above neutral in order to improve gait mechanics and mobility for driving 02/27/24: 3 deg above neutral LTG Duration 12 weeks NOT MET Assessment Summary Assessment Pt continues to have tenderness and trigger points at medial elbow with palpable nodules along medial/lateral/ anterior elbow. Reports improvement in elbow pain levels with manual therapy despite tenderness. Lacking 3 deg elbow ext post manual treatment. Able to perform comparable single leg heel raises without pain or clicking in ankle. Good response to self dorsiflexion mobilization. Pt and pt discussed discharge vs extending plan at next session ; pt requesting to discharge as she states that she has all the skills and tools to maintain and will follow up with PCP for new referral if she feels like she needs it. Physical Therapy Plan Frequency and Duration Frequency of Treatment 1x/Week Duration of treatment (weeks) 12 Plan of Care Start Date 12/13/23 Plan of Care End Date 03/07/24 Therapeutic Interventions Therapeutic Interventions Balance Training,Gait Training ,Home Exercise Program,Joint Mobilizations,Manual Therapy, Neuromuscular Re-education, Orthotic/Prosthetic Management ,Patient/Caregiver Education, Self-Care/Home Management, Sensory Integration,Soft Tissue Mobilization,Taping, Therapeutic Activities, Therapeutic Exercises Modalities Cold Pack/Ice Massage,Electric Stimulation,Hot Packs, Ultrasound Other Referrals/Consults Referrals/Consults Recommended Recommend for referral for additional imaging if elbow or ankle pain continues and referral to supervisory training specialist or furniture assembly supervisor to address ROM and pain. Next Visit Focus/Plan Next Note Type Discharge Summary Next Visit Plan Condense HEP. wrist flex/ext, elbow ext If work on ankle: single leg heel raises and toe raises at wall; hip 3 way with band, step up, leg press; ankle proprioception proprioception: SLS, cone taps , stable/unstable surface Ankle and elbow mobilizations and STM update HEP weekly
--- NOTE | 2024-03-04 11:53 | PT.OTN ---
Current Diagnoses Pain in left elbow (03/04/24) Pain in right ankle and joints of right foot (03/04/24) Stiffness of left elbow, not elsewhere classified (03/04/24) Stiffness of right ankle, not elsewhere classified (03/04/24) Other lack of coordination (03/04/24) Weakness (03/04/24) Physical Therapy Treatment Note PT-OP-A Visit Information Start: 12/13/23 09:03 Freq: Status: Active Protocol: Document 03/04/24 10:37 NM (Rec: 03/04/24 11:53 NM [id number]) Out-Patient Physical Therapy Visit Information Visit Information Visit Type Discharge Summary Visit Note Fin [id number] Visit Start Time 10:45 Visit Stop Time 11:30 Visit Number 03/24 Evaluation Information Evaluation Date 12/13/23 PT-OP-B Current Condition Start: 12/13/23 09:03 Freq: Status: Active Protocol: Document 12/13/23 09:03 NM (Rec: 12/13/23 09:47 NM [id number]) Current Condition History of Current Condition Current Complaints pain, decreased mobility and stability History of Current Condition Pt presents with R ankle pain. It is chronic condition, 10 years ago from injury. Pt was chasing after her son in a jump house, jumping over the wedge, hit the outside of her ankle and landed. She was assessed for a sprain and fracture, was casted and booted; she had 2 cycles of PRP and an arthroscopy to remove scar tissue. She reports that is was manageable ; however, now she feels like a tendon is catching in the ankle when she moves. She occasionally gets a sharp pain that makes her leg give out. She has been wearing supportive hiking boots; worse with: driving (pressing pedal ), taekwondo w/ twisting or lateral movements, uneven ground ambulation, unable to run, car transfer. No recent imaging. Ok to stand or walk unless prolonged due to repetitive movement; no limitation due to distance/ time. She has been doing taekwondo for a year (dec 2022), states that catching started in the spring 2022. Has tried ankle compression sleeve which helps but does not stop the problem. Pt also presents with L elbow pain for 8 months. She reports that she though it was achy. She states was progressively getting worse. About 1 month ago, she states that it was the worse that it ever was. 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 She also has occasional shoulder pain. States no known JOSE ALFREDO. She states that on an evening, she has rest it on a pillow. 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 Her ankle is same, does not stop her from doing anything, no catching. PT-OP-D Balance Start: 12/13/23 09:03 Freq: Status: Active Protocol: Document 12/13/23 09:03 NM (Rec: 12/13/23 09:47 NM [id number]) Balance Tests Single Limb Standing Single Limb- Right 10 seconds, painful Single Limb- Left 30 seconds PT-OP-E Functional Tests Start: 12/13/23 09:03 Freq: Status: Active Protocol: Document 12/13/23 09:03 NM (Rec: 12/13/23 09:47 NM [id number]) Functional Tests Other DF test Name of Test measured from 4 finger position (toe) to wall, heel down on ground Score R 3.5 cm, L 0 cm PT-OP-F Manual Assessment Start: 12/13/23 09:03 Freq: Status: Active Protocol: Document 12/13/23 09:03 NM (Rec: 12/13/23 09:47 NM [id number]) Manual Assessments Soft Tissue Assessment Soft Tissue Mobility Assessment elbow- decreased length of biceps muscle, increased tone in extensor wad ankle- increased swelling at R ankle along lateral side, decreased length of achilles Joint Mobility Assessment Joint Mobility Assessment elbow- increased muscle guarding, no increased instability compared to R elbow, unable to fully extend elbow ankle- increased movement in sagittal plane with anterior drawer along with increased pain, no increased pain with other medial or lateral ligamentous testing or forceful ankle dorsiflexion PT-OP-G Mobility & Gait Start: 12/13/23 09:03 Freq: Status: Active Protocol: Document 12/13/23 09:03 NM (Rec: 12/13/23 10:04 NM [id number]) OP Gait Assessment Gait Distance (Feet) 150 Comments Gait Comments Antalgic gait with R stance, demos decreased stance time and dorsiflexion on RLE. Less propulsion on RLE and slight ER PT-OP-J Posture/Palpation/Skin Start: 12/13/23 09:03 Freq: Status: Active Protocol: Document 12/13/23 09:03 NM (Rec: 12/13/23 10:04 NM [id number]) Posture Evaluation Position Standing Head/C-Spine Posture Forward Head Arm Posture (L) Neutral,(R) Neutral Pelvis Posture Anteriorly Tilted Weight Distribution Weight Shifted Left Hip Posture (L) Externally Rotated,(R) Externally Rotated Knee Posture (L) Genu Valgus,(R) Genu Valgus Ankle/Foot Posture (L) Supinated,(R) Supinated Foot Arch (L) Medium Arch,(R) Medium Arch Comments Posture Comments Increased carrying elbow angle bilaterally, hyperextension of R knee in stance Palpation Assessment Location L elbow Palpation Details Tenderness along B joint line lateral > medial, lateral extenor wad and lateral epidcondyle no tenderness along olecranon or biceps/triceps near insertion R ankle Palpation Details Tenderness along anterior ankle near sinus tarsi, ankle mortise, and lateral malleolus Increased swelling along ankle across B malleoli No tenderness along rays or tarsals, calcaneus, malleoli PT-OP-K Range of Motion Start: 12/13/23 09:03 Freq: Status: Active Protocol: Document 03/04/24 10:37 NM (Rec: 03/04/24 11:53 NM [id number]) Elbow/Forearm Range of Motion Elbow/Forearm Right Elbow Flexion (degrees) 144 Elbow Extension (degrees) 0 Pronation (degrees) 90 Supination (degrees) 80 Left Elbow Flexion (degrees) 140 Elbow Extension (degrees) 5 Pronation (degrees) 90 Supination (degrees) 90 Comments pain with pronation, sup w/ flex 01/16/24: lacking 9 deg of extension 03/04/24: lacking 5 deg of ext Ankle and Foot Goniometric Range of Motion Ankle and Foot Right Plantarflexion 45 Inversion 30 Eversion 20 Comments minimal ROM into inversion, eversion but denies pain; lacking 10 deg DF from neutral 01/16/24: 12 deg ev, 18 deg inv , 3 deg above neutral DF, 45 deg PF 03/04/24, 02/27/24: 3 deg DF above neutral Left Dorsiflexion with Knee Flexed 6 Plantarflexion 50 Inversion 30 Eversion 20 PT-OP-L Special Tests Start: 12/13/23 09:03 Freq: Status: Active Protocol: Document 12/13/23 09:03 NM (Rec: 12/13/23 10:04 NM [id number]) Special Tests Cervical Spine Special Tests Traction Comments assess next session Spurling's Test Test Results - Elbow Special Tests Lateral epicondylitis tests Comments + palpation + 3rd finger ext + lateral epicondylitis test flex > ext Hook test Test Results able to palpate and hook distal biceps tendon Ashley's Biceps Test Results - Varus Test Results - Comments increased guarding Valgus Test Results - Comments increased guarding Foot/Ankle Special Tests Peroneal Subluxation Test Results - Srinivasan Test Results - Talar tilt Test Results - Anterior drawer Test Results + Neural Special Tests- Upper Body Elbow Flexion Test Test Results - Tinel Sign Test Results - Comments ulnar n PT-OP-M Strength Start: 12/13/23 09:03 Freq: Status: Active Protocol: Document 03/04/24 10:37 NM (Rec: 03/04/24 11:53 NM [id number]) Elbow/Forearm Strength Elbow and Forearm Manual Muscle Testing Right Flexion (C6) 4+ Good+ Extension (C7) 4+ Good+ Pronation 4+ Good+ Supination 4+ Good+ Left Flexion (C6) 4+ Good+ Extension (C7) 4+ Good+ Pronation 4+ Good+ Supination 4+ Good+ Comments no pain with resisted motion 01/16/24: 4/5 w/o pain 02/27/24: 4+/5 w/o pain Ankle/Foot Strength Ankle and Foot Manual Muscle Testing Right Dorsiflexion (L4) 4+ Good+ Plantarflexion (S1) 4 Good Inversion 4+ Good+ Eversion (S1) 4+ Good+ Comments 2 single leg heel raise 01/16/24: 4/5; tested in sitting 02/27/24: 4+/5 for all; heel raises: 15 Left Dorsiflexion (L4) 4+ Good+ Plantarflexion (S1) 4 Good Inversion 4+ Good+ Eversion (S1) 4+ Good+ Comments IE: 18 single leg heel raise 02/27/24: 15 heel raises PT-OP-Q Treatments Start: 12/13/23 09:03 Freq: Status: Active Protocol: Document 03/04/24 10:37 NM (Rec: 03/04/24 11:53 NM [id number]) Therapeutic Exercises Sitting Exercises finger extension Side left Resistance rubber band Reps/Minutes 10 Comments neutral position for wrist wrist pronation/supination Sitting Exercise Name wrist supination isometric Side left Resistance 1# db Reps/Minutes 15x2 ea wrist flex/ext Sitting Exercise Name 1. wrist ext rod, 2. ecc wrist ext Side left Resistance 1# db Reps/Minutes 1. 2x10 holds, 2. 10 w/ 3 ecc, 1 hold, 3 concentric wrist flexor/extensor stretch Sitting Exercise Name 1. flex, 2. ext (slight elbow flex) Side left Equipment Used cued for hand placement for better stretch Reps/Minutes 1x30 ea Comments elbow extended; pain free but limited stretch ankle 4 way Sitting Exercise Name ankle eversion, inversion, DF Side right Resistance level 2 > level 3 band Reps/Minutes 10 ea Comments pain free; good form Standing Exercises squat with band Standing Exercise Name did not perform but cont w/ HEP self tc mobilzation Standing Exercise Name lunge with LE on step with UE support (HEP) Side right Resistance lvl 4 band at ankle for post glide Equipment Used foot on step Reps/Minutes 15x5 w/ toe scour Heel raise toe raise Standing Exercise Name 1. gastrocnemius raise, 2. soleus raise (added HEP) Side bilateral Equipment Used 6 step, B hand support for balance Reps/Minutes 15 ea Comments no pain resisted stepping Standing Exercise Name did not perform but cont w/ HEP Other Exercises quadruped Other Exercise Name elbow extension w/ wrist pronation, wrist supination Side bilateral Reps/Minutes 5 ea Manual Therapy Treatment Consent Patient gave verbal consent for manual Yes treatment Soft Tissue Mobilization left elbow Body Location medial and lateral muscles, posterior and anterior Mobilization Type Cross-Friction,Myofascial Release,Other Intensity/Depth Moderate Body Position Hooklying Comments Palpable and tender nodules along lateral elbow. Monitored for pain. Increased tightness and trigger points along lateral muscles, fewer than last session. Improved with manual treatment but not resolved. Education on more gentle STM at home to avoid symptom aggravation R ankle Body Location bilateral ankles Mobilization Type Cross-Friction,Rolling Intensity/Depth Moderate Body Position Prone Joint Mobilizations R ankle Joint TC AP Grade III Reps/Duration 2x30 Comments Monitored for pain. changed hand position for comfort to decrease neural symptoms into foot, reduced with change in placement Self-Care/Home Management Treatment Education Patient Education Home Exercise Program Other Education Updated HEP for maintenance on previously issued sheets and 1 additional sheet PT-OP-T Assessment and Plan Start: 12/13/23 09:03 Freq: Status: Active Protocol: Document 03/04/24 10:37 NM (Rec: 03/04/24 11:53 NM [id number]) Physical Therapy Assessment Goals Five Impairment L elbow strength Short Term Goal (STG) If appropriate, Pt will improve L elbow global strength to at least 4+/5 without increase in baseline pain in order to 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 and ability to lift 01/16/24: 4/5; no pain but Feels it burning with extension end range STG Duration 10 weeks Assisted Goal (LTG) Pt will report no increase in baseline pain in L elbow or limitations during driving in order to demonstrate improved symptom management and QOL 02/27/24: Pt reports that she still has pain in elbow p when driving, gets worse with driving LTG Duration 12 weeks NOT MET Four Impairment L elbow extension limited by 10 deg Short Term Goal (STG) If appropriate, Pt will improve L elbow extension by at least 5 deg in order to be able to extend arm fully for gripping, lifting, and driving 01/16/24: 9 deg lacking STG Duration 8 weeks PROGRESSING Green Chainer Goal (LTG) If appropriate, Pt will improve L elbow extension to at least 2 deg in order to be able to extend arm fully for gripping, lifting, and driving 02/27/24: lacking 6 deg of ext premanual, lacking 3 deg post manual 03/04/24: lacking 5 deg ext LTG Duration 12 weeks NOT MET Three Impairment strength Short Term Goal (STG) Pt will increase R global ankle strength to at least 4/5 MMT in order to demonstrate improved strength for gait, tae tuan do, and endurance while driving 01/16/24: 4/5 for all; PF tested in sitting due to time STG Duration 6 weeks PROGRESSING Assisted Goal (LTG) Pt will improve R ankle single leg heel raises to within 3 of LLE, in addition to 4+/5 R ankle strength globally in order to demonstrate improved strength for gait, tae tuan do and endurance while driving 02/27/24: 4+/5 for all, 15 single leg heel raises LTG Duration 8 weeks MET Two Impairment ankle AROM limitations in eversion and inversion 10 deg ea Short Term Goal (STG) Pt will increase R ankle inversion AROM to at least 20 deg and R ankle eversion ROM to at least 12 deg in order to demonstrate improved mobility for stability during stance and gait 01/16/24: 12 deg ev, 18 deg inv STG Duration 8 weeks MET 02/27/24 Assisted Goal (LTG) Pt will increase R ankle inversion AROM to at least 30 deg and R ankle eversion ROM to at least 15 deg in order to demonstrate improved mobility for stability during stance and gait 02/27/24: 20 deg inversion, 12 deg eversion 03/04/24: 30 deg ankle inversion, 20 deg ankle eversion LTG Duration 12 weeks MET One Impairment ankle ROM DF limitations lacking 10 deg from neutral Short Term Goal (STG) Pt will improve R ankle dorsiflexion AROM to at least neutral in order to improve gait mechanics and mobility for driving 01/16/24: 3 deg above neutral STG Duration 8 weeks Assisted Goal (LTG) Pt will improve R ankle dorsiflexion AROM to at least 5 deg above neutral in order to improve gait mechanics and mobility for driving 02/27/24: 3 deg above neutral LTG Duration 12 weeks NOT MET Progress Towards Goals Progress Comments 3/5 goals not met but demonstrates progression Assessment Summary Assessment Pt tolerated session well, no increase in ankle or elbow pain at end of session. Mild modification for wrist/elbow ext stretch, recommended slight elbow flex then ext slowly to comfort point for stretch vs full stretch; pt tolerates better. Session emphasis on creating maintenance program. Trialed stair soleus raises along with gastroc raises, good form and minimal cueing needed. Cued only for set up on ankle dorsiflexion mobilization. Good feedback to isometric hold and progression to finger extension. Educated can progress to 2# dumbbell at home for wrist/elbow exercises once can progress without symptom irritation for multiple reps. No medial L elbow tenderness, only lateral elbow with several trigger points present. Has reproduction of neural symptoms with L talocrural mobilization but reduced with change in hand placement. Physical Therapy Plan Frequency and Duration Frequency of Treatment 1x/Week Duration of treatment (weeks) 12 Plan of Care Start Date 12/13/23 Plan of Care End Date 03/07/24 Therapeutic Interventions Therapeutic Interventions Balance Training,Gait Training ,Home Exercise Program,Joint Mobilizations,Manual Therapy, Neuromuscular Re-education, Orthotic/Prosthetic Management ,Patient/Caregiver Education, Self-Care/Home Management, Sensory Integration,Soft Tissue Mobilization,Taping, Therapeutic Activities, Therapeutic Exercises Modalities Cold Pack/Ice Massage,Electric Stimulation,Hot Packs, Ultrasound Other Referrals/Consults Referrals/Consults Recommended Recommend for referral for additional imaging if elbow or ankle pain continues and referral to operations specialists to address ROM and pain. Discharge Physical Therapy Discharge Reasons Patient Request Discharge Comments Pt requesting to discharge due to insurance limitations and reports improvements overall but is not willing to modify activities to assist progression with elbow and ankle rehab. Pt states that she has all the skills and tools to maintain and will follow up with PCP for new referral if she feels like she needs it. Discharge to maintenance program with emphasis on progression toward remaining goals. Next Visit Focus/Plan Next Note Type Discharge Summary Next Visit Plan discharge from PT
== END 2024-03-11 08:44 | disposition home or self-care (01) ==
LOC: PHYS 10:45
PROVIDERS: Family Provider Family Medicine; PCP Family Medicine; Referring Provider Family Medicine; Visit Provider Family Medicine
DX: M25.571 Pain in right ankle and joints of right foot (principal); M25.522 Pain in left elbow; M25.671 Stiffness of right ankle, not elsewhere classified; M25.622 Stiffness of left elbow, not elsewhere classified; R53.1 Weakness; R27.8 Other lack of coordination
CPT/HCPCS: 97110; 97112; 97140; 97162

== ENCOUNTER → 2024-04-04 11:33 | Outpatient (CLI) | payer BC, OTHER, SELFPAY ==
--- NOTE | 2024-04-04 11:34 | DI.RAD.S_ITS ---
PROCEDURE: XR CHEST 2V INDICATIONS: Cough TECHNIQUE: 2 views of the chest were acquired. COMPARISON: None. FINDINGS: Surgical changes and devices: None. Lungs and pleura: Lungs are clear. No pleural effusions or pneumothorax. Mediastinum: Mediastinal contours are normal. Heart size is normal. Bones and chest wall: No suspicious bony abnormalities. Soft tissues appear unremarkable. IMPRESSION: No acute cardiopulmonary abnormality is seen. Dictated by: Geovanny Cole M.D. on 04/04/2024 at 13:42 Approved by: Geovanny Cole M.D. on 04/04/2024 at 13:42
== END ==
PROVIDERS: Family Provider Family Medicine; PCP Family Medicine; Referring Provider Registered Nurse; Visit Provider Registered Nurse
DX: R05.9 Cough, unspecified (principal)
CPT/HCPCS: 71046

== ENCOUNTER → 2024-05-26 08:38 | Outpatient (CLI) | payer OTHER, SELFPAY | PROVIDERS: Family Provider Family Medicine; PCP Family Medicine; Referring Provider Nurse Practitioner Family; Visit Provider Nurse Practitioner Family | DX: R52 Pain, unspecified (principal) | CPT/HCPCS: 87070 ==

== ENCOUNTER → 2024-05-26 08:54 | Outpatient (CLI) | payer OTHER, SELFPAY ==
--- NOTE | 2024-05-26 08:56 | DI.RAD.S_ITS ---
PROCEDURE: XR CHEST 2V INDICATIONS: Cough TECHNIQUE: 2 views of the chest were acquired. COMPARISON: [facility], , XR CHEST 2V, 04/04/2024, 12:46. FINDINGS: Heart, mediastinum and pulmonary vascular: Heart is normal in size and configuration. Mediastinum is unremarkable. Pulmonary vascular is normal. Lungs: Clear Pleural spaces: Normal-no effusions or pneumothorax. Bones and soft tissues: Normal IMPRESSION: Normal chest. Dictated by: Neptali Carver M.D. on 05/27/2024 at 10:47 Approved by: Neptali Carver M.D. on 05/27/2024 at 10:47
== END ==
PROVIDERS: Family Provider Family Medicine; PCP Family Medicine; Referring Provider Nurse Practitioner Family; Visit Provider Nurse Practitioner Family
DX: R05.9 Cough, unspecified (principal); R52 Pain, unspecified
CPT/HCPCS: 71046; 87070

== ENCOUNTER → 2024-07-03 09:47 | Outpatient (CLI) | payer OTHER, SELFPAY | PROVIDERS: Family Provider Family Medicine; PCP Family Medicine; Referring Provider Family Medicine; Visit Provider Family Medicine | DX: M79.673 Pain in unspecified foot (principal) | CPT/HCPCS: 95886; 95911 ==

== ENCOUNTER → 2024-07-10 08:45 | Outpatient (CLI) | payer OTHER, SELFPAY ==
--- NOTE | 2024-07-10 08:48 | DI.US.S_ITS ---
MM diagnostic mammo unilat LT, US breast LT limited: 07/10/2024 BI-RADS: 4 CLINICAL: 43-year old female for left diagnostic mammogram and left diagnostic breast ultrasound. The patient presents for short interval follow-up. Tyrer-Cuzick lifetime risk of 23.5%. No personal or first-degree family history of breast cancer. Current reported family history of breast cancer: paternal grandmother and maternal aunt. PRIOR EXAMS 12/11/2023, 11/19/2023. MAMMOGRAPHY TECHNIQUE: 2D and 3D (tomosynthesis) digital mammographic views obtained, with additional images as needed for full coverage. Current study was also evaluated with a Computer Aided Detection (CAD) system. ULTRASOUND TECHNIQUE: Real-time mar scale and color doppler imaging of the area of clinical interest was performed with image documentation. Left targeted breast ultrasound of the area of clinical interest and the axilla was performed with image documentation. DENSITY Left: C. The breasts are heterogeneously dense, which may obscure small masses. MAMMOGRAPHY FINDINGS Left (finding-1): Upper Outer Quadrant, Posterior depth, measuring 0.9 cm: Correlating with prior imaging concern there are dystrophic calcifications with associated mass. The mass and calcifications are unchanged compared to the prior. Left (finding-2): Central, Retroareolar, Far Anterior depth, measuring 1.9 cm: There is an oval mass present. ULTRASOUND FINDINGS Left (finding-2): Central, Retroareolar, measuring 2.1 x 1.3 x 1.9 cm: Correlating with findings on mammogram there is a microlobulated mass. Doppler shows internal vascularity. Left (finding-1): Upper Outer at 2:00, 8 cm from nipple, measuring 0.7 x 0.6 x 0.6 cm, previously measuring 0.9 x 0.5 x 0.7 cm: Correlating with findings on mammogram there is an oval, hypoechoic mass. Doppler shows no vascularity. Allowing for differences in technique, the mass is stable in size and appearance. Left: Axilla: No suspicious sonographic finding present. No abnormal lymph nodes are seen in the axilla. IMPRESSION: Left (Mass): Central, Retroareolar, measuring 2.1 x 1.3 x 1.9 cm * Suspicious findings with likelihood of malignancy. Left (Mass): Upper Outer at 2:00, 8 cm from nipple, measuring 0.7 x 0.6 x 0.6 cm, previously measuring 0.9 x 0.5 x 0.7 cm * Probably Benign. RECOMMENDATIONS Left: Upper Outer at 2:00, 8 cm from nipple * Six month followup with diagnostic mammography and diagnostic ultrasound. Left: Central, Retroareolar * Ultrasound-guided biopsy for further evaluation. OVERALL ASSESSMENT CATEGORY BI-RADS-4: Suspicious. ELECTRONICALLY SIGNED: Lynn Rubio M.D. on 07/10/2024 at 12:35:38 PM PT Interpreting Station ID: [id number]
== END ==
PROVIDERS: Family Provider Family Medicine; PCP Family Medicine; Referring Provider Family Medicine; Visit Provider Family Medicine
DX: R92.8 Other abnormal and inconclusive findings on diagnostic imaging of breast (principal); N63.21 Unspecified lump in the left breast, upper outer quadrant; N63.42 Unspecified lump in left breast, subareolar; R92.333 Mammographic heterogeneous density, bilateral breasts; Z80.3 Family history of malignant neoplasm of breast
CPT/HCPCS: 76642; 77065; G0279

== ENCOUNTER → 2024-07-23 14:32 | Outpatient (CLI) | payer OTHER, SELFPAY ==
--- NOTE | 2024-07-23 | PATH_ITS ---
[facility] Accession Number: [id number] No. of containers..01 Tissue . 01 Material submitted: . breast - LEFT BREAST MASS 12:00 RETROAREOLAR . 01 Diagnosis: LEFT BREAST MASS AT 12 O'CLOCK, RETROAREOLAR, NEEDLE CDRE BIOPSY: Benign fibroepithelial lesion. Negative for epithelial atypia or malignancy. Please see comment. MRV 07/25/2024 1754 Local . 01 Comment: The differential diagnosis includes fibroadenoma and benign phyllodes tumor. . This case was also reviewed by Dr. Jasmin Dai (Julie), who agrees with the interpretation. . . 01 Electronically signed: . Sheron Sweeney MD, Pathologist NPI- [id number] . 01 Gross description: . Received is one formalin-filled container labeled with the patient's name and designated left breast mass 12 o'clock retroareolar. The specimen is received with plastic filter in container and sample loose in container and consists of three yellow-mar to mar-nguyen cylindrical-shaped portions of tissue which range in size from 0.9 x 0.2 x 0.2 cm to 1.8 x 0.2 x 0.2 cm. All fragments are totally submitted in cassette A1. . The specimen was removed on 07/23/2024 at 1519 hours. Time in formalin not provided. Cold ischemic time cannot be calculated. Total fixation time is approximately 12 hours. (DC:[id number]) / 07/24/2024 0621 Local . 01 Microscopic: . Immunohistochemical stains for ER and CK56 are performed to evaluate for block reactivity. The control stained with appropriate reactivity. . RESULTS: Block A1 ER: Variably positive in region of interest. CK5/6: Positive in region of interest. . The strong CK56 staining and variably positive ER staining supports an interpretation of usual ductal hyperplasia at this focus. . * This test was developed and the performance characteristics were validated by [facility]. It has not been cleared or approved by the U.S. Food and Drug Administration. . 01 Pathologist provided ICD-10: N63.0 . 01 CPT . 210823, [id number] Specimen Comment: A courtesy copy of this report has been sent to [facility] Pathology Performed at: [address] [address], [place], [place] [id number] MD Chase Weinstein MD Phone: [phone]
--- NOTE | 2024-07-23 14:33 | DI.US.S_ITS ---
US bx breast perc w vac device: 07/23/2024. Rad-Path Correlation: Pending CLINICAL: 43-year old female for left procedure that resulted from diagnostic mammogram on 07/10/2024. Tyrer-Cuzick lifetime risk of 29.2%. No personal or first-degree family history of breast cancer. Current reported family history of breast cancer: paternal grandmother and maternal aunt. The patient had a prior left breast biopsy. PRIOR EXAMS: Mammogram(s). Breast Ultrasound exam(s). CONSENT Risks including but not limited to bleeding and infection, benefits and alternatives were discussed with the patient. The patient agreed to the procedure and signed informed consent. Time out procedure was used. ROUTINE Left: Patient positioned in the supine or supine-oblique position, prepped and draped in the usual manner using sterile technique. TECHNIQUE Left Breast: Central, Anterior: Morphology: Irregular spiculated mass. Procedure: Ultrasound-guided vacuum-assisted biopsy of a mass with Coil-shaped marker placement. Device: 14-gauge vacuum-assisted biopsy instrument. Bard(R) Monopty(R) 14g. Approach: Medial. Anesthesia: Local anesthesia obtained using 3 ml 1%-lidocaine buffered with sodium bicarbonate. Skin Entry: Incision with #11 blade. Passes: 3. Specimens: 3. Targeting Confirmation: Real-time Observation and Post-Procedure Imaging. Marker Placement: Coil marker placed in target location. Post-procedure imaging: Post-procedure imaging confirms the marker to be in target location. Rad/Path Correlation: Pending receipt of pathology report. Conclusion: Ultrasound-guided Vacuum-assisted biopsy with post-procedure CC and ML mammographic views with marker placement, Left Breast: Central, Anterior COMPLICATIONS: No complications were encountered while the patient was in our department. DISPOSITION The patient left our department in good condition with aftercare instructions and urged to contact us should any problem arise. The breast was compressed to achieve hemostasis. SUMMARY Left Breast: Central, Anterior: Ultrasound-guided vacuum-assisted biopsy of a mass with Coil-shaped marker placement. PATHOLOGY Left Breast: Central, Anterior: Radiologist-Pathologist Correlation: Pending receipt of pathology report. ELECTRONICALLY SIGNED: Manisha Tucker M.D. on 07/24/2024 at 09:49:44 AM PT Interpreting Station ID: [id number]
--- NOTE | 2024-07-23 15:15 | DI.MG.S_ITS ---
MM diagnostic mammo [id number]: 07/23/2024. BI-RADS: None CLINICAL: 43-year old female for left diagnostic mammogram that is a follow-up to diagnostic mammogram on 07/10/2024. Tyrer-Cuzick lifetime risk of 29.2%. No personal or first-degree family history of breast cancer. Current reported family history of breast cancer: paternal grandmother and maternal aunt. The patient had a prior left breast biopsy. PRIOR EXAMS Mammogram(s): 07/10/2024. Breast Ultrasound(s): 07/10/2024. Three Other Exams on 12/11/2023, 11/19/2023. MAMMOGRAPHY TECHNIQUE: 2D and 3D (tomosynthesis) digital mammographic views obtained, with additional images as needed for full coverage. Current study was also evaluated with a Computer Aided Detection (CAD) system. DENSITY Left: C. The breasts are heterogeneously dense, which may obscure small masses. MAMMOGRAPHY FINDINGS Left: Central, Middle depth. Previous report: , Retroareolar: There is a (Coil) biopsy marker in targeted location. IMPRESSION: Left * Biopsy marker present. OVERALL ASSESSMENT CATEGORY BI-RADS None: This exam requires no BI-RADS. ELECTRONICALLY SIGNED: Manisha Tucker M.D. on 07/24/2024 at 09:55:59 AM PT Interpreting Station ID: [id number]
== END ==
PROVIDERS: Family Provider Family Medicine; PCP Family Medicine; Referring Provider Family Medicine; Visit Provider Family Medicine
DX: N63.15 Unspecified lump in the right breast, overlapping quadrants (principal); N64.89 Other specified disorders of breast; R92.332 Mammographic heterogeneous density, left breast; Z80.3 Family history of malignant neoplasm of breast
CPT/HCPCS: 19083; 77065

== ENCOUNTER → 2024-09-12 07:54 | Outpatient (CLI) | payer OTHER, SELFPAY ==
--- NOTE | 2024-09-12 07:55 | DI.MRI.S_ITS ---
PROCEDURE: MR ANKLE RT WO CON INDICATIONS: ANKLE IMPINGEMENT SYNDROME TECHNIQUE: Noncontrast sagittal T1 spin echo and T2 fast spin echo with fat saturation, axial proton density fast spin echo and T2 fast spin echo with fat saturation, coronal T1 spin echo and T2 fast spin echo with fat saturation through the ankle/hindfoot. COMPARISON: [facility] [place], CR, XR FOOT 3 VIEWS WEIGHT BEARING RIGHT, 08/07/2024, 10:01. FINDINGS: Image quality: Excellent. Bones and joints: No acute trabecular bone injury or fracture. No osteochondral injuries of the talar dome. Mildly long gated anterior process of the calcaneus with focal cortical irregularity and trace edema, possibly the sequela of a prior injury. Fibrous calcaneonavicular coalition is not excluded. Medial structures: The deltoid ligament and the spring ligament complex are intact. The posterior tibialis, flexor digitorum longus, and flexor hallucis longus tendons are intact. The posterior tibial neurovascular bundle appears normal within the tarsal tunnel, without extrinsic mass effect. Lateral structures: The anterior talofibular, calcaneofibular, and posterior talofibular ligaments are intact. The anterior and posterior tibiofibular ligaments are intact. Mild peroneus brevis and longus tendinosis. The sinus tarsi demonstrates normal fatty signal. Anterior structures: The tibialis anterior, extensor hallucis longus, and extensor digitorum longus tendons appear intact. Posterior and plantar structures: Achilles tendon is intact. The proximal plantar fascia is mildly thickened without surrounding edema. No abductor digiti minimi muscle atrophy to suggest Frye neuropathy. IMPRESSION: 1. 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 Focal cortical irregularity and trace edema in the anterior process of the calcaneus may be secondary to subacute or chronic prior trauma or degenerative changes. 2. Mild peroneus brevis and longus tendinosis. 3. Mild chronic proximal plantar fasciitis. Approved by: Stan Cabral M.D. on 09/13/2024 at 12:07
== END ==
LOC: MRI 07:54
PROVIDERS: Family Provider Family Medicine; PCP Family Medicine; Referring Provider Orthopaedic Surgery Foot and Ankle Surgery; Visit Provider Orthopaedic Surgery Foot and Ankle Surgery
DX: M25.871 Other specified joint disorders, right ankle and foot (principal); M72.2 Plantar fascial fibromatosis
CPT/HCPCS: 73721

== ENCOUNTER → 2024-10-25 14:40 | Outpatient (CLI) | payer OTHER, SELFPAY ==
--- NOTE | 2024-10-25 14:41 | DI.MRI.S_ITS ---
PROCEDURE: MRFOOT LT WO CON INDICATIONS: stress reaction of bone TECHNIQUE: Multiphasic, multisequence MRI of the forefoot was performed, without intravenous contrast administration. COMPARISON: [facility] [place], CR, XR FOOT 3 VIEWS WEIGHT BEARING RIGHT, 08/07/2024, 10:01. FINDINGS: Image quality: Excellent. Bones and joints: Normal marrow signal. No marrow edema to suggest stress changes. No acute fracture. The hallucal sesamoid are unremarkable. Small effusion at the 5th metatarsophalangeal joint. Soft tissues: Mild thickening of the central cord of the plantar fascia, partially visualized, likely representing plantar fasciitis. The visualized flexor, and extensor tendons are unremarkable. Muscles are normal in signal. Mild 1st, 2nd, and 3rd intermetatarsal bursitis. No Mancuso's neuroma. The Lisfranc ligament is intact. IMPRESSION: 1. No stress changes. No acute fracture. 2. Plantar fasciitis, partially visualized. 3. Mild intermetatarsal bursitis. Dictated by: Idalmis Zamorano M.D. on 10/27/2024 at 10:23 Approved by: Idalmis Zamorano M.D. on 10/27/2024 at 10:30
== END ==
PROVIDERS: Family Provider Family Medicine; PCP Family Medicine; Referring Provider Orthopaedic Surgery Foot and Ankle Surgery; Visit Provider Orthopaedic Surgery Foot and Ankle Surgery
DX: M71.572 Other bursitis, not elsewhere classified, left ankle and foot (principal); M84.30XA Stress fracture, unspecified site, initial encounter for fracture; M72.2 Plantar fascial fibromatosis; M25.871 Other specified joint disorders, right ankle and foot
CPT/HCPCS: 73718

== ENCOUNTER → 2025-01-07 10:24 | Outpatient (CLI) | payer OTHER, SELFPAY ==
--- NOTE | 2025-01-07 10:25 | DI.US.S_ITS ---
MM diagnostic mammo BI, US breast LT limited: 01/07/2025 BI-RADS: 3 CLINICAL: 44-year old female for bilateral diagnostic mammogram and left diagnostic breast ultrasound that is a follow-up to diagnostic mammogram on 07/10/2024. Tyrer-Cuzick lifetime risk of 23.5%. No personal or first-degree family history of breast cancer. Current reported family history of breast cancer: paternal grandmother and maternal aunt. The patient had a prior left breast biopsy. PRIOR EXAMS Mammogram(s): 07/10/2024. 12/11/2023, 11/19/2023. MAMMOGRAPHY TECHNIQUE: 2D and 3D (tomosynthesis) digital mammographic views obtained, with additional images as needed for full coverage. Current study was also evaluated with a Computer Aided Detection (CAD) system. ULTRASOUND TECHNIQUE TARGETED Left Breast Ultrasound: Real-time ultrasound exam was performed focused to area of clinical and/or imaging concern. DENSITY C. The breasts are heterogeneously dense, which may obscure small masses. MAMMOGRAPHY FINDINGS Left: Central, Retroareolar: Correlating with area of biopsy, there is a focal asymmetry present that is unchanged in size and appearance. Left: There is a focal asymmetry present with associated calcifications. Asymmetry is unchanged in size and appearance. ULTRASOUND FINDINGS Left: Upper Outer at 2:00, 8.0 cm from nipple, measuring 0.7 x 0.6 x 0.7 cm: There is an oval, hypoechoic mass. The mass is unchanged in size and appearance. Doppler shows no vascularity. Left: Upper at 12:00, Retroareolar, measuring 1.8 x 1.2 x 1.8 cm - previously measuring (12/12/2024) 2 x 1.5 x 2 cm. Previous report: Central: Correlating with area of biopsy there is an irregularly shaped, hypoechoic mass. The mass is unchanged in size and appearance. Doppler shows no vascularity. IMPRESSION: Left (Mass): Upper Outer at 2:00, 8.0 cm from nipple, measuring 0.7 x 0.6 x 0.7 cm * Probably Benign. RECOMMENDATIONS Left: Upper Outer at 2:00, 8.0 cm from nipple * Six month followup with diagnostic mammography. * Six month followup with diagnostic ultrasound. COMMENTS: 12:00 retroareolar finding pathology result was benign and concordant. OVERALL ASSESSMENT CATEGORY BI-RADS-3: Probably Benign. ELECTRONICALLY SIGNED: Brando Nice M.D. on 01/07/2025 at 12:09:23 PM PT Interpreting Station ID: [id number]
== END ==
LOC: MAMMO 10:24
PROVIDERS: Family Provider Family Medicine; PCP Family Medicine; Referring Provider Family Medicine; Visit Provider Family Medicine
DX: R92.8 Other abnormal and inconclusive findings on diagnostic imaging of breast (principal); R92.1 Mammographic calcification found on diagnostic imaging of breast; N63.21 Unspecified lump in the left breast, upper outer quadrant; R92.333 Mammographic heterogeneous density, bilateral breasts; Z80.3 Family history of malignant neoplasm of breast
CPT/HCPCS: 76642; 77066; G0279